=== PATIENT | male | born 1975 ===

== ENCOUNTER 2016-05-25 22:27 | Inpatient (IN) | payer MEDICAID ==
[2016-05-25 22:27] VITALS: BMI 26.8
--- NOTE | 2016-05-25 22:38 | ED PDOC ---
Psych Transfer Clearance - Clearance Statement Clearance Statement: Reviewed vital signs, lab results and transfer papers. Patient clinically stable for psychiatric admission.
[2016-05-25] MEDS ORDERED: Alum-Mag Hydrox-Simethicone Susp (30 mL) PO PRN (23:19)
[2016-05-25] MEDS ORDERED: Magnesium Hydroxide Susp 30 ml UD PO PRN (23:19)
[2016-05-25] MEDS ORDERED: DiphenhydrAMINE 50 mg/ml Inj IM PRN (23:19)
[2016-05-25] MEDS ORDERED: Bismuth Subsalicylate 262 mg/15 ml Sus (240 ml) PO PRN (23:23)
[2016-05-25] MEDS ORDERED: Albuterol HFA 90 mcg/actuation (8 g) INH PRN (23:38)
[2016-05-26 01:19] VITALS: O2SAT 97
[2016-05-26 08:03] LABS: T4 7.41 ug/dl (5.5-11.0)
[2016-05-26 08:16] LABS: THYROID STIMULATING HORMONE 1.53 mIU/ML (0.46-4.68)
[2016-05-26] MEDS: VENTOLIN INH PRN (13:45)
--- NOTE | 2016-05-26 19:46 | CP.PCM.CON ---
History of Present Illness - History of Present Illness History of Present Illness: Hospitalist Consult H&P (Patient was seen and examined at 6:35 PM 05/26/16 [id number]) Patient was admitted to in-patient Psychiatry for evaluation of hearing voices. Unfortunately patient is not a very good historian. He explains that when he feels sad, he starts to drink beer and he consumed 8 beers a few days ago (he can not be more specific than that). After drinking these beers he started to hear voices (again he could not be more specific at the time of my interview as to what these voices were telling him). He believes that the Risperdol is not working. Patient goes from one thought to the next: he talked about his drinking beer, then living with his grandmother, then watching movies, then back to the Risperdol not working for him. Upon ROS there is NO chest pain, NO palpitations, NO SOB/Coug/Wheezing, NO dysphagia/odynophagia, NO abdominal pain, NO n/v/d/c (states that he has diarrhea but when asked to clarify he states that the stools are soft), NO burning/pain with urination, NO lightheadedness/dizziness, NO headaches, NO paresthesias, NO edema The following obtained through prior records and from speaking with patient: PMHx: HTN, Gastritis, Anxiety, Bipolar Disorder, Schizophrenia, Asthma PSHx: Denies ALL: Haloperidol Medication: See list below Social Hx: NOT working, Lives with GrandMom, (+) Cigars about 14-15 a day, (+) Alcohol about 8 beers when he feels sad a few times a week, Denies Illicit Drugs Family Hx: Could not provide any Family Hx Exam: HEENT: NCA, PERRLA, EOMI, NO cervical lymphadenopathy, NO thyromegaly, NO pharyngeal erythema/exudate, Oral mucosa and Nasal turbinates are dry Cardio: NS1 and NS2, NO M/R/G Respiratory: Scattered end expiratory wheezes, NO signs of respiratory distress , Speaking in full sentences GI: BSx4, Soft, NT, Central Obesity (liver and spleen could not be adequately palpated) Ext: NO edema, Pulses are strong and equal, Capillary Refill is 2 seconds Neuro: CN II through XII are grossly intact Assessment and Plan: 1). Schizophrenia Treatment as per Psychiatry 2). Hx Asthma Duoneb Q6H PRN SOB/Wheezing ordered F/U Chest X Ray PA and Lateral F/U Labs 05/27/16 Review of Systems - Review of Systems Review of Systems: SEE HPI Past Patient History - Infectious Disease Hx of Infectious Diseases: None - Tetanus Immunizations Tetanus Immunization: Unknown - Past Medical History & Family History Pertinent Family History: SEE HPI - Past Social History Smoking Status: Former Smoker - CARDIAC Hx Hypertension: Yes - PULMONARY Hx Asthma: Yes - NEUROLOGICAL Hx Seizures: Yes (ETOH related) - HEENT Hx HEENT Problems: No - RENAL Hx Chronic Kidney Disease: No - ENDOCRINE/METABOLIC Hx Endocrine Disorders: No - HEMATOLOGICAL/ONCOLOGICAL Hx Cancer: No Hx Human Immunodeficiency Virus (HIV): No - INTEGUMENTARY Hx Dermatological Problems: No - MUSCULOSKELETAL/RHEUMATOLOGICAL Hx Musculoskeletal Disorders: No - GASTROINTESTINAL Hx Gastritis: Yes - GENITOURINARY/GYNECOLOGICAL Hx Genitourinary Disorders: No Hx Sexually Transmitted Disorders: No - PSYCHIATRIC Hx Schizophrenia: Yes Hx Substance Use: No - SURGICAL HISTORY Hx Surgeries: No - ANESTHESIA Hx Anesthesia: No Meds Allergies/Adverse Reactions: Allergies Allergy/AdvReac Type Severity Reaction Status Date / Time haloperidol [From Haldol] Allergy ANAPHYLAXIS Verified 05/25/16 22:30 haloperidol lactate Allergy ANAPHYLAXIS Verified 05/25/16 22:30 [From Haldol] - Medications Medications: Current Medications Acetaminophen (Tylenol 325mg Tab) 650 mg PO Q4 PRN PRN Reason: pain level 4-7 Al Hydrox/Mg Hydrox/Simethicone (Maalox Plus 30 Ml) 30 ml PO Q4 PRN PRN Reason: Dyspepsia Bismuth Subsalicylate (Pepto-Bismol) 524 mg PO Q4 PRN PRN Reason: for diarrhea Diphenhydramine HCl (Benadryl) 50 mg PO Q6 PRN PRN Reason: Extrapyramidal Symptoms Diphenhydramine HCl (Benadryl) 50 mg IM Q6 PRN PRN Reason: Extrapyramidal S/S Unable PO Diphenhydramine HCl (Benadryl) 50 mg PO HS PRN PRN Reason: Sleep Home Med (Patient's Own Medication) 2 unit INH Q4H PRN PRN Reason: Wheezing/sob Last Admin: 05/26/16 13:45 Dose: 2 unit Lorazepam (Ativan) 2 mg PO Q4 PRN PRN Reason: Anxiety/Agitation Lorazepam (Ativan) 2 mg IM Q4 PRN PRN Reason: Anxiety/Agitation,Unable PO Magnesium Hydroxide (Milk Of Magnesia) 30 ml PO HS PRN PRN Reason: Constipation Trazodone HCl (Desyrel) 100 mg PO HS PRN PRN Reason: for insomnia Last Admin: 05/26/16 00:10 Dose: 100 mg Results - Vital Signs Recent Vital Signs: Last Vital Signs Temp 96.3 F L 05/26/16 17:00 Pulse 78 05/26/16 17:00 Resp 18 05/26/16 17:00 BP 125/75 05/26/16 17:00 Pulse Ox 97 05/25/16 23:30 - Labs Labs: Laboratory Results - last 24 hr 05/26/16 07:05 Hemoglobin A1c 5.9 Triglycerides 61 Cholesterol 166 LDL Cholesterol Direct 86 HDL Cholesterol 49 Thyroxine (T4) 7.41 TSH 3rd Generation 1.53
--- NOTE | 2016-05-26 20:24 | PCM.PSYCH ---
Initial Psychiatric Evaluation - Initial Psychiatric Evaluation Type of Admission: Voluntary Chief Complaint (in patient's own words): came to emergency room because I was hearing voices and drinking Patient's Reaction to Hospitalization: verbally agreeable to remain History of Present Illness and Precipitating Events: reports has been drinking approx. 5-6 24 oz beers per day, reports drinks all day long, has been drinking for many years, does not remember when started nor if he was ever in rehab or detox for etoh. reports that began hearing voices at age 28, does not recall particular event. reports was seen by various psychiatrists and prescribed various medications. in past was admitted for " many months in [place]". Admits that when is discharged does not always follow up or continue to take medications, would stop, would drink and stop medications. In between would go to emergency room or be admitted and get medications. admits that last seen several weeks ago. reports in past was taking geodon of unknown dose was working for 10 years then stopped working. reportedly was started on risperdal of varying amounts but reports started having uncontrollable movement of tongue-dose was reportedly decreased but remained with movement of tongue. once risperdal was stopped movements of tongue resolved. Current Medications: Active Medications Generic Name Dose Route Start Last Admin Trade Name Freq PRN Reason Stop Dose Admin Acetaminophen 650 mg 05/25/16 23:19 Tylenol 325mg Tab PO Q4 PRN pain level 4-7 Al Hydrox/Mg Hydrox/Simethicone 30 ml 05/25/16 23:19 Maalox Plus 30 Ml PO Q4 PRN Dyspepsia Albuterol/Ipratropium 3 ml 05/26/16 19:47 Duoneb 3 Mg/0.5 Mg (3 Ml) Ud INH RQ6 PRN Shortness of Breath Aripiprazole 15 mg 05/26/16 22:00 Abilify PO HS DEYANIRA Benztropine Mesylate 2 mg 05/26/16 22:00 Cogentin PO HS DEYANIRA Bismuth Subsalicylate 524 mg 05/25/16 23:23 Pepto-Bismol PO Q4 PRN for diarrhea Diphenhydramine HCl 50 mg 05/25/16 23:19 Benadryl PO Q6 PRN Extrapyramidal Symptoms Diphenhydramine HCl 50 mg 05/25/16 23:19 Benadryl IM Q6 PRN Extrapyramidal S/S Unable PO Diphenhydramine HCl 50 mg 05/25/16 23:22 Benadryl PO HS PRN Sleep Home Med 2 unit 05/26/16 00:14 05/26/16 13:45 Patient's Own Medication INH 2 unit Q4H PRN Administration Wheezing/sob Lorazepam 2 mg 05/25/16 23:19 Ativan PO Q4 PRN Anxiety/Agitation Lorazepam 2 mg 05/25/16 23:19 Ativan IM Q4 PRN Anxiety/Agitation,Unable PO Magnesium Hydroxide 30 ml 05/25/16 23:19 Milk Of Magnesia PO HS PRN Constipation Trazodone HCl 100 mg 05/25/16 23:35 05/26/16 00:10 Desyrel PO 100 mg HS PRN Administration for insomnia Past Psychiatric History - Past Psychiatric History Previous Treatment History: Inpatient Prior Professional Help: inpatient, no follow with opd per hx Prior Psychiatric Treatment: [facility] both inpt and opd, terminal [facility] History of Abuse: defers History of ETOH/Drug Use: long standing history of etoh use does not recall if had DT's or withdrawal in past Pertinent Medical Hx (Current Medical&Sleep Prob, Allergies): Allergies Allergy/AdvReac Type Severity Reaction Status Date / Time haloperidol [From Haldol] Allergy ANAPHYLAXIS Verified 05/25/16 22:30 haloperidol lactate Allergy ANAPHYLAXIS Verified 05/25/16 22:30 [From Haldol] Benztropine [Cogentin] 1 mg PO BID #60 tab 05/10/16 risperiDONE [RisperDAL Tab] 2 mg PO BID #60 tab 05/10/16 traZODone [Desyrel] 100 mg PO HS PRN #30 tab 05/10/16 Spacer, Inhalation [Aerochamber] 1 inh IH QID #1 dev 05/21/16 Albuterol HFA [Ventolin HFA 90 mcg/actuation (8 g)] 2 puff IH Q4 05/26/16 Review of Systems - Psychiatric Psychiatric: Abnormal Sleep Pattern, Auditory Hallucinations, Hallucinations, Irritability, Mood Swings Additional comments: auditory Mental Status Examination - Personal Presentation Personal Presentation: Looks older than stated age - Affect Affect: Constricted - Motor Activity Motor Activity: Calm - Reliability in Providing Information Reliability in Providing Information: Poor, due to alteration in thoughts - Speech Speech: Disorganized - Mood Mood: Depressed - Formal Thought Process Formal Thought Process: Hallucinations, Paranoia - Cognitive Functions Orientation: Person, Place Sensorium: Alert Attention/Concentration: Easily distracted Judgement: Imparied, as evidence by: Poor judgement - Risk Risk: Suicidal - Strength & Assets Inventory Strength & Assets Inventory: Cooperative Additional comments: voluntary admission - Limitations Limitations: Other Additional comments: non adherence non follow up DSM 5 DX - DSM 5 DSM 5 Diagnosis: Schizophrenia Paranoid Type by History Substance Abuse: ETOH Current Substance Induced Mood/Psychosis - Recommended/Plan of Treatment Treatment Recommendations and Plan of Treatment: admission per attending MD Vital signs and Clinical Observation per protocol and per clinical status Hospitalist consult Pt defers use of risperidone 2nd to reported eps, reviewed ability with pt and is verbally agreeable: will start 10mg po hs with benztropine 2mg po hs trazodone 100mg po hs for insomnia get up slowly falls precautions consider abilify maintenna long acting given hx of non adherence once affects of abilify are known discharge planning in progress Projected ELOS: 5-7 days Prognosis: guarded Discharge Plan and Discharge Criteria: resolve of audio hallucinations minimal to no side effects from medication safe - Smoking Cessation Smoking Cessation Initiated: No Reason for not providing: pt defers
[2016-05-27 07:56] LABS: BASO % 0.5 % (0.0-2.0); EOS # 0.6 K/uL (0.0-0.7); EOS % 9.2 % (0.0-4.0); HEMATOCRIT 43.6 % (35.0-51.0); LYMPH # 1.4 K/uL (1.0-4.3); LYMPH % 23.1 % (20.0-40.0); MEAN CELL VOLUME 85.5 fl (80.0-94.0); MEAN CORPUSCULAR HEMOGLOBIN 27.6 pg (27.0-31.0); MEAN CORPUSCULAR HGB CONC 32.2 g/dL (33.0-37.0); MEAN PLATELET VOLUME 8.6 fl (7.2-11.7); MONO # 0.7 K/uL (0.0-0.8); MONO % 11.8 % (0.0-10.0); NEUT # 3.3 K/uL (1.8-7.0); NEUT % 55.4 % (50.0-75.0); NRBC % 0.1 % (0.0-0.0); RED CELL DISTRIBUTION WIDTH 15.1 % (11.5-14.5)
[2016-05-27 08:28] LABS: ALB/GLOB RATIO 1.1 (1.0-2.1); ALKALINE PHOSPHATASE 62 U/L (38-126); ALT/SGPT 59 U/L (21-72); AST/SGOT 32 U/L (17-59); BILIRUBIN,TOTAL 0.5 mg/dl (0.2-1.3); BLOOD UREA NITROGEN 12 mg/dl (9-20); CALCIUM 9.1 mg/dL (8.4-10.2); CARBON DIOXIDE 26 mmol/L (22-30); CHLORIDE 105 mmol/L (98-107); GFR AFRICAN-AMERICAN > 60; GLUCOSE,RANDOM 101 mg/dL (75-110); POTASSIUM 4.1 MMOL/L (3.6-5.0); SODIUM 143 mmol/l (132-148); TOTAL PROTEIN 7.6 G/DL (6.3-8.2)
[2016-05-27] MEDS: VENTOLIN INH PRN ×2 (10:13→17:49)
--- NOTE | 2016-05-27 18:48 | PCM.PYCHPN ---
Psychiatric Progress Note - Psychiatric Progress Note Patient seen today, length of contact: chart reviewed, case discussed with team Patient Chief Complaint: was hearing voices voices are somewhat less, staff report pt has been adherent Problems Identified/Issues Discussed: alteration in mood, alteration in thought process Medical Problems: per chart Diagnostic Results: per psychiatry per medicine per social work per recreational therapy DSM 5 Symptoms Update: changes in thought process Medication Change: No Medical Record Reviewed: Yes Mental Status Examination - Cognitive Function Orientation: Person, Place Attention: WNL Concentration: WNL Association: WNL Fund of Knowledge: [facility] Decription of patient's judgement and insights: impaired - Mood Mood: Depressed - Affect Affect: Constricted - Speech Speech: Soft - Formal Thought Process Formal Thought Process: Hallucinations, Paranoia - Suicidal Ideation Suicidal Ideation: No - Homicidal Ideation Homicidal Ideation: No Goal/Treatment Plan - Goal/Treatment Plan Need for Continued Stay: Remain at risks for inpatient hospitalization, Discharge may exacerbated symptoms Progress Toward Problem(s) and Goals/Treatment Plan: inpt/milieu Vital signs and Clinical Observation per protocol and per clinical status trazodone 100mg po hs for insomnia get up slowly falls precautions consider abilify maintenna long acting given hx of non adherence once affects of abilify are known discharge planning in progress Estimated Date of D/C: 06/03/16 - Smoking Cessation Smoking Cessation Initiated: No Reason for not providing: defers
[2016-05-28] MEDS: VENTOLIN INH PRN ×2 (10:08→16:30)
[2016-05-28] MEDS: Albuterol-Ipratrop 3 mg / 0.5 (3 ml) UD INH PRN (16:28)
--- NOTE | 2016-05-28 20:55 | PCM.PYCHPN ---
Psychiatric Progress Note - Psychiatric Progress Note Patient seen today, length of contact: chart reviewed, case discussed with team Patient Chief Complaint: is hearing voices much less almost gone , deneis side effects from medications, pt is reportedly adherent medication, reportedly pt is somewhat more out of room Problems Identified/Issues Discussed: alteration in mood, alteration in thought process Medical Problems: per chart Diagnostic Results: per psychiatry per medicine per social work per recreational therapy DSM 5 Symptoms Update: changes in mood and thought process Medication Change: No Medical Record Reviewed: Yes Mental Status Examination - Cognitive Function Orientation: Person, Place Attention: WNL Concentration: WNL Association: [facility] Fund of Knowledge: [facility] Decription of patient's judgement and insights: impaired - Mood Mood: Depressed - Affect Affect: Constricted - Speech Speech: Soft - Formal Thought Process Formal Thought Process: Hallucinations, Paranoia - Suicidal Ideation Suicidal Ideation: No - Homicidal Ideation Homicidal Ideation: No Goal/Treatment Plan - Goal/Treatment Plan Need for Continued Stay: Remain at risks for inpatient hospitalization, Discharge may exacerbated symptoms Progress Toward Problem(s) and Goals/Treatment Plan: inpt/milieu Vital signs and Clinical Observation per protocol and per clinical status trazodone 100mg po hs for insomnia get up slowly falls precautions consider abilify maintenna long acting given hx of non adherence once affects of abilify are known discharge planning in progress Estimated Date of D/C: 06/03/16 - Smoking Cessation Smoking Cessation Initiated: No Reason for not providing: pt deferred
[2016-05-29] MEDS: VENTOLIN INH PRN (09:28)
--- NOTE | 2016-05-29 14:00 | PCM.PYCHPN ---
Psychiatric Progress Note - Psychiatric Progress Note Patient seen today, length of contact: Patient evaluated, chart reviewed, case discussed with team Patient Chief Complaint: "I don't want to change the medications. When am I going home?" Problems Identified/Issues Discussed: Patient reports that the voices are less. No current ideation to harm himself or others. He would like to leave the hospital soon and the bid writer discussed the possibility of him being discharged on Tuesday if he continues to improve clinically. He does not want to increase the Abilify at this time and denies adverse effects to the medication. No other acute complaints. Denies feelings depressed or anxious. Medication Change: No Medical Record Reviewed: Yes Mental Status Examination - Cognitive Function Orientation: Person, Place, Situation, Time Memory: Other (Intact, but with poverty of speech/thought) Attention: WNL Concentration: WNL Association: WNL Fund of Knowledge: WN - Mood Mood: Depressed - Affect Affect: Constricted - Speech Speech: Soft - Formal Thought Process Formal Thought Process: Hallucinations, Other (Poverty of speech/thoughts) Psychotic Thoughts and Behaviors: +Intermittent AH, but patient reports they are less and that he is not disturbed by them. No CAH to harm himself - Suicidal Ideation Suicidal Ideation: No - Homicidal Ideation Homicidal Ideation: No Goal/Treatment Plan - Goal/Treatment Plan Need for Continued Stay: Remain at risks for inpatient hospitalization, Discharge may exacerbated symptoms Progress Toward Problem(s) and Goals/Treatment Plan: 40 yo male with schizophrenia and alcohol abuse, presented acutely decompensated in the setting of alcohol abuse/intoxication. -Continue Abilify 15 mg PO Daily, Benztropine 2 mg PO HS, Trazodone 100 mg PO HS -No current signs/symptoms of ETOH withdrawal, will continue to monitor -Supportive therapy provided, patient counseled on the importance of ETOH cessation -Individual, group and milieu tx Estimated Date of D/C: 05/31/16 - Smoking Cessation Smoking Cessation Initiated: No Reason for not providing: Not indicated
[2016-05-30] MEDS: VENTOLIN INH PRN (09:22)
--- NOTE | 2016-05-30 09:33 | PCM.PYCHPN ---
Psychiatric Progress Note - Psychiatric Progress Note Patient seen today, length of contact: Patient evaluated, chart reviewed, case discussed with team Patient Chief Complaint: "I'm okay." Problems Identified/Issues Discussed: No significant events. Patient reports that he no longer has AH. He is goal oriented and looking forward to discharge. He does not want to increase the Abilify at this time and denies adverse effects to the medication. No other acute complaints. Denies feelings depressed or anxious. Medication Change: No Medical Record Reviewed: Yes Mental Status Examination - Cognitive Function Orientation: Person, Place, Situation, Time Memory: Other (Intact, but with poverty of speech/thought) Attention: WNL Concentration: WNL Association: WNL Fund of Knowledge: [facility] Decription of patient's judgement and insights: Fair I/J - Mood Mood: Neutral - Affect Affect: Blunted - Speech Speech: Soft - Formal Thought Process Formal Thought Process: Other (Poverty of speech/thoughts) Psychotic Thoughts and Behaviors: Denies AH/VH/paranoia/delusions - Suicidal Ideation Suicidal Ideation: No - Homicidal Ideation Homicidal Ideation: No Goal/Treatment Plan - Goal/Treatment Plan Need for Continued Stay: Remain at risks for inpatient hospitalization, Discharge may exacerbated symptoms Progress Toward Problem(s) and Goals/Treatment Plan: 40 yo male with schizophrenia and alcohol abuse, presented acutely decompensated in the setting of alcohol abuse/intoxication, now improving clinically. -Continue Abilify 15 mg PO Daily, Benztropine 2 mg PO HS, Trazodone 100 mg PO HS -No current signs/symptoms of ETOH withdrawal, will continue to monitor -Supportive therapy provided, patient counseled on the importance of ETOH cessation -Individual, group and milieu tx -Discharge tomorrow if patient continue to improve clinically Estimated Date of D/C: 05/31/16
[2016-05-31] MEDS: Albuterol-Ipratrop 3 mg / 0.5 (3 ml) UD INH PRN (09:50)
[2016-05-31] MEDS: VENTOLIN INH PRN (09:51)
[2016-05-31 09:57] VITALS: BP 119/78; PULSE 78; RESP 16; TEMP 96.6
--- NOTE | 2016-05-31 10:01 | PCM.PYCHDC ---
Mental Status Examination - Mental Status Examination Orientation: Person, Place, Situation, Time Memory: Intact Mood: Neutral Affect: Constricted Speech: Appropriate Attention: WNL Concentration: WNL Association: WNL Fund of Knowledge: WNL Formal Thought Process: No Impairment Description of patient's judgement and insight: Fair I/J Psychotic Thoughts and Behaviors: Denies AH/VH/paranoia/delusions Suicidal Ideation: No Current Homicidal Ideation?: No Discharge Summary - Discharge Note Reason for Hospitalization: As per initial admit note: "reports has been drinking approx. 5-6 24 oz beers per day, reports drinks all day long, has been drinking for many years, does not remember when started nor if he was ever in rehab or detox for etoh. reports that began hearing voices at age 28, does not recall particular event. reports was seen by various psychiatrists and prescribed various medications. in past was admitted for "many months in [place]". Admits that when is discharged does not always follow up or continue to take medications, would stop , would drink and stop medications. In between would go to emergency room or be admitted and get medications. admits that last seen several weeks ago. reports in past was taking geodon of unknown dose was working for 10 years then stopped working. reportedly was started on risperdal of varying amounts but reports started having uncontrollable movement of tongue-dose was reportedly decreased but remained with movement of tongue. once risperdal was stopped movements of tongue resolved." Consultations:: List each consultation separately and include: 1. Reason for request. 2. Findings. 3. Follow-up Consultations: Medicine consult Summary of Hospital Course include:: 1. Description of specific treatment plan utilized for patients during their course of treatmen. 2. Summarize the time- course for resolution of acute symptoms and/or regressed behaviors. 3. Describe issues identified and worked on during hospitalization. 4. Describe medication utilized. 5. Describe medical problems identified and treated. 6. Reassessment of suicide risk Summary of Hospital Course: Patient admitted to the hospital and stabilized on Abilify 15 mg PO Daily, Trazodone 100 mg PO HS and Cogentin 2 mg PO HS. He no longer reports auditory hallucinations. Patient participated in individual and group therapy. Supportive and motivational therapy were provided. Patient was counseled on the importance of ETOH cessation. - Final Diagnosis (DSM 5) Condition upon Discharge: STABLE DSM 5: Schizophrenia, alcohol abuse Disposition: HOME/ ROUTINE Follow-up Treatment Plan: 40 yo male with schizophrenia and alcohol abuse, presented acutely decompensated in the setting of alcohol abuse/intoxication, now improved clinically. -Continue Abilify 15 mg PO Daily, Benztropine 2 mg PO HS, Trazodone 100 mg PO HS -Supportive therapy provided, patient counseled on the importance of ETOH cessation -Discharge today with outpatient follow-up Prescriptions/Medication Reconciliation: ARIPiprazole [Abilify] 15 mg PO DAILY #30 tab Benztropine [Cogentin] 2 mg PO HS #30 tab traZODone [Desyrel] 100 mg PO HS PRN #30 tab PRN Reason: for insomnia - Smoking Cessation Smoking Cessation Medication prescribed: No Reason for not providing: Not indicated - Antipsychotic Medications Pt discharged on 2 or more routine antipsychotic medications: No
== END 2016-05-31 14:00 | disposition home or self-care (01) | DRG 430 ==
LOC: H.ER 22:27 → H.ERHOLD 22:37 → H.PSYCH 22:51
PROVIDERS: ADMIT Psychiatry & Neurology Psychiatry; ATTEND Psychiatry & Neurology Psychiatry
PROC: GZHZZZZ Group Psychotherapy (ICD-10-PCS; principal; 2016-05-25)
PROC: GZ56ZZZ Individual Psychotherapy, Supportive (ICD-10-PCS; 2016-05-25)
DX: F20.0 Paranoid schizophrenia (principal); I10 Essential (primary) hypertension; J45.909 Unspecified asthma, uncomplicated; K29.70 Gastritis, unspecified, without bleeding; F10.10 Alcohol abuse, uncomplicated; Y90.9 Presence of alcohol in blood, level not specified; G47.00 Insomnia, unspecified

== ENCOUNTER 2016-07-09 13:10 | Inpatient (IN) | payer MEDICAID ==
[2016-07-09 13:10] VITALS: BMI 26.8
[2016-07-09 14:05] LABS: BASO % 0.2 % (0.0-2.0); EOS % 0.2 % (0.0-4.0); HEMATOCRIT 41.9 % (35.0-51.0); LYMPH # 1.1 K/uL (1.0-4.3); LYMPH % 6.9 % (20.0-40.0); MEAN CELL VOLUME 84.6 fl (80.0-94.0); MEAN CORPUSCULAR HEMOGLOBIN 27.6 pg (27.0-31.0); MEAN CORPUSCULAR HGB CONC 32.6 g/dL (33.0-37.0); MEAN PLATELET VOLUME 8.4 fl (7.2-11.7); MONO # 1.8 K/uL (0.0-0.8); NEUT # 13.1 K/uL (1.8-7.0); NEUT % 81.7 % (50.0-75.0); NRBC % 0.1 % (0.0-0.0); PLATELET COUNT 329 K/uL (130-400); RED CELL DISTRIBUTION WIDTH 15.3 % (11.5-14.5)
[2016-07-09 14:19] LABS: ALB/GLOB RATIO 1.3 (1.0-2.1); ALCOHOL SERUM < 10 mg/dl (0-10); ALKALINE PHOSPHATASE 129 U/L (38-126); ALT/SGPT 141 U/L (21-72); AST/SGOT 42 U/L (17-59); BILIRUBIN,TOTAL 0.6 mg/dl (0.2-1.3); BLOOD UREA NITROGEN 14 mg/dl (9-20); CALCIUM 9.8 mg/dL (8.4-10.2); CARBON DIOXIDE 24 mmol/L (22-30); CHLORIDE 98 mmol/L (98-107); GFR AFRICAN-AMERICAN > 60; GLUCOSE,RANDOM 104 mg/dL (75-110); POTASSIUM 4.2 MMOL/L (3.6-5.0); SODIUM 137 mmol/l (132-148); TOTAL PROTEIN 8.9 G/DL (6.3-8.2)
--- NOTE | 2016-07-09 14:53 | ED PDOC ---
HPI: Psych/Substance Abuse Time Seen by Provider: 07/09/16 13:16 Chief Complaint (Nursing): Psychiatric Evaluation Chief Complaint (Provider): Hearing Vocies req. Psychiatric Evaluation History Per: Patient History/Exam Limitations: no limitations Current Symptoms Are (Timing): Constant Modifying Factor(s): Alcohol, Other (OTC meds) Severity: Moderate Associated Symptoms: denies: Suicidal Thoughts Additional History Per: Prior Records Additional Complaint(s): Madi Pereira is a 41 year old male, with a past medical history of schizophrenia, bipolar disorder, depression, and anxiety, who presents to the emergency department via EMS with complaints of hearing voices and is currently requesting a psychiatric evaluation. Patient took 18 capsules of Geodon or Risperdal (is unsure as to which medication), along with 5 cans of beer, which he was seen this morning at [facility] for, and admitted for a psychiatric evaluation. Patient currently states that he wants to go to [facility]. Denies suicidal thoughts and states that he took the medications because he thought that they would help him. PMD: none specified Past Medical History Vital Signs: Last Vital Signs Temp 98.4 F 07/09/16 13:12 Pulse 108 H 07/09/16 13:12 Resp 19 07/09/16 13:12 BP 128/80 07/09/16 13:12 Pulse Ox 97 07/09/16 13:12 - Medical History PMH: Anxiety, Asthma, Bipolar Disorder, Depression, Gastritis, HTN, Schizophrenia Denies: Diabetes, Hepatitis, HIV, Chronic Kidney Disease, Seizures, Sexually Transmitted Disease - Surgical History Surgical History: No Surg Hx - Family History Family History: States: No Known Family Hx - Living Arrangements Living Arrangements: With Family (with grandmother) - Social History Current smoker - smoking cessation education provided: No Ex-Smoker (has not smoked in the last 12 months): Yes Alcohol: Occasional Drugs: Denies - Immunization History Hx Tetanus Toxoid Vaccination: No Hx Influenza Vaccination: No Hx Pneumococcal Vaccination: No - Home Medications Home Medications: Ambulatory Orders Medication Instructions Recorded Benztropine [Cogentin] 1 mg PO BID #1 tab 07/08/16 Ziprasidone [Geodon Cap] 60 mg PO HS #1 cap 07/08/16 Ziprasidone [Geodon] 80 mg PO BID #1 cap 07/08/16 fluPHENAZine [Prolixin] 10 mg PO BID #1 tab 07/08/16 hydrOXYzine HCl [Atarax] 50 mg PO TID #1 tab 07/08/16 traZODone [Desyrel] 100 mg PO HS PRN #1 tab 07/08/16 Albuterol HFA [Ventolin HFA 90 1 puff IH Q4H PRN 07/09/16 mcg/actuation (8 g)] - Allergies Allergies/Adverse Reactions: Allergies Allergy/AdvReac Type Severity Reaction Status Date / Time haloperidol [From Haldol] Allergy ANAPHYLAXIS Verified 06/13/16 20:47 haloperidol lactate Allergy ANAPHYLAXIS Verified 06/13/16 20:47 [From Haldol] Review of Systems Review Of Systems: ROS cannot be obtained secondary to pt's inabilty to answer questions. (ROS unobtainable due to patient's psychiatric condition) Psych: Negative for: Suicidal ideation Physical Exam - Reviewed Nursing Documentation Reviewed: Yes Vital Signs Reviewed: Yes - Physical Exam Appears: Positive for: No Acute Distress. Negative for: Well (disheveled appearing) Head Exam: Positive for: ATRAUMATIC, NORMOCEPHALIC Skin: Positive for: Normal Color, Warm, Dry Eye Exam: Positive for: EOMI, Normal appearance, PERRL Cardiovascular/Chest: Positive for: Tachycardia (mild). Negative for: Regular Rate, Rhythm (regular rhythm) Respiratory: Positive for: Normal Breath Sounds. Negative for: Respiratory Distress Gastrointestinal/Abdominal: Positive for: Normal Exam, Soft. Negative for: Tenderness Back: Positive for: Normal Inspection. Negative for: L CVA Tenderness, R CVA Tenderness Neurologic/Psych: Positive for: Alert, Oriented, Other (mumbled speech, cooperatove w/ poor insight) - Laboratory Results Result Diagrams: 07/09/16 19:00 07/09/16 13:57 - ECG ECG Rhythm: Positive for: Normal QRS, Sinus Rhythm Interpretation Of Abn EKG: QTC interval at 480 Rate: 96 O2 Sat by Pulse Oximetry: 97 (RA) Pulse Ox Interpretation: Normal Medical Decision Making Medical Decision Makin:16 Initial Impression: Possible overdose with known setting of prolonged mental illness. Initial Plan: * Chest X-Ray * Electrocardiogram (x2) * Alcohol Serum * Complete Blood Count * Comprehensive Metabolic Panel * Troponin I * Acetaminophen * Salicylate * Urine Drug Screen * Urinalysis * ED Observation * Reevaluation 13:40 EKG read a rate of 96 with a Normal Sinus Rhythm, Normal QRS, and a QTC interval at 480. 15:06 Patient will be placed within ED Observation secondary to need for psychiatric stabilization. Pending cardiac and neurological monitoring for presentation of Toxidrome. See Observation note for further updates. 16:45 Patient cleared by poison control and is awaiting a crisis evaluation for disposition. Repeat EKG shows a a Normal Sinus Rhythm at a rate of 93 with a QTC interval at 457. Scribe Attestation: Documented by Matt Mott, acting as a scribe for Salinas Bender III, MD. Provider Scribe Attestation: All medical record entries made by the Scribe were at my direction and personally dictated by me. I have reviewed the chart and agree that the record accurately reflects my personal performance of the history, physical exam, medical decision making, and the department course for this patient. I have also personally directed, reviewed, and agree with the discharge instructions and disposition. ED OBSERVATION Discharge: Yes Date of observation admission: 07/09/16 Time of observation admission: 15:06 - Observation admission statement Patient is being placed in observation because:: Patient will be placed within ED Observation secondary to need for psychiatric stabilization. - Goals of Observation Goals of observation are:: Pending cardiac and neurological monitoring for presentation of Toxidrome. Disposition - Clinical Impression Clinical Impression: Schizophrenia, Overdose - Patient ED Disposition Is Patient to be Admitted: Transfer of Care Counseled Patient/Family Regarding: Studies Performed, Diagnosis - Disposition Disposition Time: 19:00 Condition: FAIR Patient Signed Over To: Louis Dickson Handoff Comments: pending crisis eval
[2016-07-09 15:31] LABS: NEUTROPHIL 89 % (42-75); TOTAL CELLS COUNTED 100
[2016-07-09 15:33] LABS: LARGE PLATELETS PRESENT
[2016-07-09 16:37] LABS: RBC URINE 3 /hpf (0-3); URINE BILIRUBIN NEGATIVE (NEGATIVE); URINE BLOOD NEGATIVE (NEGATIVE); URINE COLOR YELLOW (YELLOW); URINE GLUCOSE (UA) NEG (Normal); URINE KETONE TRACE mg/dL (NEGATIVE); URINE LEUKOCYTE ESTERASE NEG Leu/uL (Negative); URINE PROTEIN NEGATIVE (NEGATIVE); URINE UROBILINOGEN 0.2-1.0 mg/dL (0.2-1.0); WBC URINE 1 /hpf (0-5)
--- NOTE | 2016-07-09 18:37 | CARD ---
APPROVED REPORT EKG Measurement Heart [id number] <Conclusion> Normal sinus rhythm Prolonged QT Abnormal ECG
[2016-07-09 19:16] LABS: HEMATOCRIT 40.8 % (35.0-51.0); MEAN CELL VOLUME 84.1 fl (80.0-94.0); MEAN CORPUSCULAR HEMOGLOBIN 27.5 pg (27.0-31.0); MEAN CORPUSCULAR HGB CONC 32.7 g/dL (33.0-37.0); RED CELL DISTRIBUTION WIDTH 15.5 % (11.5-14.5); WHITE BLOOD COUNT 12.2 K/uL (4.8-10.8)
--- NOTE | 2016-07-09 22:08 | ED PDOC ---
- Laboratory Results Result Diagrams: 07/09/16 19:00 07/09/16 13:57 - ECG O2 Sat by Pulse Oximetry: 99 (RA) Pulse Ox Interpretation: Normal Medical Decision Making Medical Decision Makin:00 Patient transferred over to provider from Dr. Bender. Pending crisis evaluation. 20:26 Patient was evaluated by crisis and is currently medically stable for a psychiatric admission. Clinical Impression: Schizophrenia Scribe Attestation: Documented by Matt Mott, acting as a scribe for Louis Dickson MD. Provider Scribe Attestation: All medical record entries made by the Scribe were at my direction and personally dictated by me. I have reviewed the chart and agree that the record accurately reflects my personal performance of the history, physical exam, medical decision making, and the department course for this patient. I have also personally directed, reviewed, and agree with the discharge instructions and disposition. Disposition - Clinical Impression Clinical Impression: Schizophrenia - POA Present On Arrival: None - Disposition Disposition: Admitted as In-Patient Disposition Time: 20:26 Condition: FAIR
[2016-07-09] MEDS ORDERED: Magnesium Hydroxide Susp 30 ml UD PO PRN (23:08)
[2016-07-09] MEDS ORDERED: DiphenhydrAMINE 50 mg/ml Inj IM PRN (23:08)
[2016-07-09] MEDS ORDERED: Alum-Mag Hydrox-Simethicone Susp (30 mL) PO PRN (23:08)
[2016-07-10] MEDS: Albuterol HFA 90 mcg/actuation (8 g) INH PRN ×2 (00:08→06:25)
--- NOTE | 2016-07-10 17:38 | PCM.PSYCH ---
Initial Psychiatric Evaluation - Initial Psychiatric Evaluation Chief Complaint (in patient's own words): was stopped meds and started drinking Patient's Reaction to Hospitalization: reports after most recent discharge stopped rx and began drinking , does not follow up once discharged History of Present Illness and Precipitating Events: multiple admission, non follow up, etoh Current Medications: Active Medications Generic Name Dose Route Start Last Admin Trade Name Freq PRN Reason Stop Dose Admin Acetaminophen 650 mg 07/09/16 23:08 Tylenol 325mg Tab PO Q4 PRN pain 4-7 Al Hydrox/Mg Hydrox/Simethicone 30 ml 07/09/16 23:08 Maalox Plus 30 Ml PO Q4 PRN Dyspepsia Albuterol 2 puff 07/09/16 23:14 07/10/16 06:25 Ventolin Hfa 90 Mcg/Actuation (8 G) INH 2 puff QID PRN Administration Shortness of Breath Diphenhydramine HCl 50 mg 07/09/16 23:08 Benadryl IM Q6 PRN Extrapyramidal S/S Unable PO Diphenhydramine HCl 50 mg 07/09/16 23:08 Benadryl PO Q6 PRN Extrapyramidal Symptoms Diphenhydramine HCl 50 mg 07/09/16 23:08 Benadryl PO HS PRN Sleep Lorazepam 2 mg 07/09/16 23:08 Ativan IM Q4 PRN Anxiety/Agitation,Unable PO Lorazepam 2 mg 07/09/16 23:08 Ativan PO Q4 PRN Anxiety/Agitation Magnesium Hydroxide 30 ml 07/09/16 23:08 Milk Of Magnesia PO HS PRN Constipation Past Psychiatric History - Past Psychiatric History Prior Professional Help: both inpt and opd History of ETOH/Drug Use: etoh History of Family Illness: defers Pertinent Medical Hx (Current Medical&Sleep Prob, Allergies): Allergies Allergy/AdvReac Type Severity Reaction Status Date / Time haloperidol [From Haldol] Allergy ANAPHYLAXIS Verified 06/13/16 20:47 haloperidol lactate Allergy ANAPHYLAXIS Verified 06/13/16 20:47 [From Haldol] Benztropine [Cogentin] 1 mg PO BID #1 tab 07/08/16 Ziprasidone [Geodon Cap] 60 mg PO HS #1 cap 07/08/16 Ziprasidone [Geodon] 80 mg PO BID #1 cap 07/08/16 fluPHENAZine [Prolixin] 10 mg PO BID #1 tab 07/08/16 hydrOXYzine HCl [Atarax] 50 mg PO TID #1 tab 07/08/16 traZODone [Desyrel] 100 mg PO HS PRN #1 tab 07/08/16 Albuterol HFA [Ventolin HFA 90 mcg/actuation (8 g)] 1 puff IH Q4H PRN 07/09/16 Review of Systems - Psychiatric Psychiatric: Abnormal Sleep Pattern, Anhedonia, Anxiety, Auditory Hallucinations , Change in Appetite, Depression, Paranoia Mental Status Examination - Affect Affect: Constricted - Motor Activity Motor Activity: Psychomotor Retardation - Reliability in Providing Information Reliability in Providing Information: Poor, due to alteration in thoughts - Speech Speech: Disorganized - Mood Mood: Depressed - Formal Thought Process Formal Thought Process: Hallucinations, Delusions, Paranoia - Hallucinations/Delusions Additional comments: auditory - Obsessions/Compulsions Obsessions: No Compulsions: No - Cognitive Functions Orientation: Person, Place, Situation, Time Sensorium: Alert Attention/Concentration: Attentive Judgement: Imparied, as evidence by: Poor judgement Memory: Recent intact, as evidence by: Ability to recall events of the day - Risk Risk: Suicidal, Diminished functioning - Strength & Assets Inventory Strength & Assets Inventory: Cooperative DSM 5 DX - DSM 5 DSM 5 Diagnosis: schizophrenia paranoid type non adherence - Recommended/Plan of Treatment Treatment Recommendations and Plan of Treatment: admission per attending vital signs and clinical observation per protocol and per status geodon 40mg po bid cogentin 1md po bid hospitalist consult discharge planning in progress Projected ELOS: 5-7 days Prognosis: guarded Discharge Plan and Discharge Criteria: safety - Smoking Cessation Smoking Cessation Initiated: No Reason for not providing: defers
[2016-07-11] MEDS: Albuterol HFA 90 mcg/actuation (8 g) INH PRN ×2 (08:59→16:20)
--- NOTE | 2016-07-11 10:01 | CP.PCM.CON ---
History of Present Illness - History of Present Illness History of Present Illness: Reason for Consult: Per hospital protocol HPI: 41 year old male no past medical history with some possible developmental delay , admitted to psych because he states he stopped taking his medications and began drinking. ROS: as per HPI, all other systems reviewed and negative by me PMH: denies PSH: denies Family History: denies Social History: denies Home Medications: per reconciliation Allergies: Haldol Vitals reviewed Constitutional- cooperative, awake, alert. Head- NCAT, PERRL Eye- PERRL, normal accommodation ENT- normal exam, MMM. Neck- normal inspection, supple, no JVD Respiratory- decreased BS, no wheezes rales rhonchi Cardiovascular- RRR, +S1, +S2 no MRG GI/Abdominal- normal bowel sounds, soft Extremities Exam- normal capillary refill, normal inspection Neurological Exam- alert, oriented Labs: 07/09/16 19:00 07/09/16 13:57 Assessment and Plan: 41 year old male no past medical history with some possible developmental delay , admitted to psych because he states he stopped taking his medications and began drinking. Psychiatric Issue per psychiatric team Past Patient History - Infectious Disease Hx of Infectious Diseases: None - Tetanus Immunizations Tetanus Immunization: Unknown - Past Social History Alcohol: Occasional Drugs: Denies - CARDIAC Hx Cardiac Disorders: No Hx Hypertension: Yes - PULMONARY Hx Tuberculosis: No - NEUROLOGICAL HX Cerebrovascular Accident: No Hx Seizures: No - HEENT Hx HEENT Problems: No - RENAL Hx Chronic Kidney Disease: No - ENDOCRINE/METABOLIC Hx Endocrine Disorders: No - HEMATOLOGICAL/ONCOLOGICAL Hx Cancer: No Hx Human Immunodeficiency Virus (HIV): No - INTEGUMENTARY Hx Dermatological Problems: No - MUSCULOSKELETAL/RHEUMATOLOGICAL Hx Musculoskeletal Disorders: No - GASTROINTESTINAL Hx Gastritis: Yes - GENITOURINARY/GYNECOLOGICAL Hx Sexually Transmitted Disorders: No - PSYCHIATRIC Hx Anxiety: Yes Hx Bipolar Disorder: Yes Hx Depression: Yes Hx Schizophrenia: Yes Hx Substance Use: No (denies) - SURGICAL HISTORY Hx Surgeries: No - ANESTHESIA Hx Anesthesia: No Hx Anesthesia Reactions: No Hx Malignant Hyperthermia: No Meds Allergies/Adverse Reactions: Allergies Allergy/AdvReac Type Severity Reaction Status Date / Time haloperidol [From Haldol] Allergy ANAPHYLAXIS Verified 06/13/16 20:47 haloperidol lactate Allergy ANAPHYLAXIS Verified 06/13/16 20:47 [From Haldol] - Medications Medications: Current Medications Acetaminophen (Tylenol 325mg Tab) 650 mg PO Q4 PRN PRN Reason: pain 4-7 Al Hydrox/Mg Hydrox/Simethicone (Maalox Plus 30 Ml) 30 ml PO Q4 PRN PRN Reason: Dyspepsia Albuterol (Ventolin Hfa 90 Mcg/Actuation (8 G)) 2 puff INH QID PRN PRN Reason: Shortness of Breath Last Admin: 07/11/16 08:59 Dose: 2 puff Diphenhydramine HCl (Benadryl) 50 mg IM Q6 PRN PRN Reason: Extrapyramidal S/S Unable PO Diphenhydramine HCl (Benadryl) 50 mg PO Q6 PRN PRN Reason: Extrapyramidal Symptoms Diphenhydramine HCl (Benadryl) 50 mg PO HS PRN PRN Reason: Sleep Lorazepam (Ativan) 2 mg IM Q4 PRN PRN Reason: Anxiety/Agitation,Unable PO Lorazepam (Ativan) 2 mg PO Q4 PRN PRN Reason: Anxiety/Agitation Last Admin: 07/10/16 21:43 Dose: 2 mg Magnesium Hydroxide (Milk Of Magnesia) 30 ml PO HS PRN PRN Reason: Constipation Results - Vital Signs Recent Vital Signs: Last Vital Signs Temp 96.8 F L 07/11/16 08:55 Pulse 94 H 07/11/16 08:55 Resp 20 07/11/16 08:55 BP 118/89 07/11/16 08:55 Pulse Ox 99 07/09/16 22:09 - Labs Result Diagrams: 07/09/16 19:00 07/09/16 13:57
--- NOTE | 2016-07-11 18:48 | PCM.PYCHPN ---
Psychiatric Progress Note - Psychiatric Progress Note Patient seen today, length of contact: chart reviewed, case discussed with team , 35min Patient Chief Complaint: was stopped meds and started drinking, talks of going to [facility] for prison care, reports previously taking seroquel at night and abilify in morning, some help when taken regularly. defers long acting injections Problems Identified/Issues Discussed: alteration in mood alteration in cognition alteration in self care' Medical Problems: per chart Diagnostic Results: per psychiatry per medicine per nursing per social work DSM 5 Symptoms Update: alteration in thought alteration in mood Medication Change: Yes (abilify 10mg po am, seroquel 300mg po hs, cogentin 1mg po am and 1mgpo 2200) Medical Record Reviewed: Yes Consults ordered or reviewed: hospitalist Mental Status Examination - Cognitive Function Orientation: Person, Place, Situation, Time - Mood Mood: Depressed - Affect Affect: Constricted - Formal Thought Process Formal Thought Process: Hallucinations, Delusions, Paranoia - Homicidal Ideation Homicidal Ideation: No Goal/Treatment Plan - Goal/Treatment Plan Progress Toward Problem(s) and Goals/Treatment Plan: admission per attending vital signs and clinical observation per protocol and per status hospitalist consult discharge planning in progress Estimated Date of D/C: 07/14/16 - Smoking Cessation Smoking Cessation Initiated: No Reason for not providing: deferred
--- NOTE | 2016-07-12 12:09 | PCM.PYCHPN ---
Psychiatric Progress Note - Psychiatric Progress Note Patient seen today, length of contact: discussed with team Patient Chief Complaint: i need to go to [facility] Problems Identified/Issues Discussed: pt states he needs to go intermediate because "my psychosis is really bad" his ekg shows qtc of 480. he states he tried to od on geodon recently. he denies any chest pain or palpitations currently. he is anxious. Medication Change: No ( ) Medical Record Reviewed: Yes Mental Status Examination - Cognitive Function Orientation: Person, Place, Situation, Time Memory: Intact Attention: WNL Concentration: WNL Association: WN Fund of Knowledge: [facility] Decription of patient's judgement and insights: questionable insight/judgment - Mood Mood: Depressed - Affect Affect: Constricted - Speech Speech: Appropriate - Formal Thought Process Formal Thought Process: Hallucinations, Delusions, Paranoia Psychotic Thoughts and Behaviors: paranoid, internally preoccupied - Suicidal Ideation Suicidal Ideation: No - Homicidal Ideation Homicidal Ideation: No Goal/Treatment Plan - Goal/Treatment Plan Need for Continued Stay: Remain at risks for inpatient hospitalization, Severe functional impairment Progress Toward Problem(s) and Goals/Treatment Plan: schizoaffective disorder alcohol dependence will continue current treatment check ekg tomorrow disposition planing Estimated Date of D/C: 07/14/16
--- NOTE | 2016-07-13 13:42 | PCM.PYCHPN ---
Psychiatric Progress Note - Psychiatric Progress Note Patient seen today, length of contact: in treatment team Patient Chief Complaint: i need to go to [facility] Problems Identified/Issues Discussed: pt continues to stay his psychosis is bad. states he needs [facility]. has been hospitalized most of last 2 months and seems hopeless about getting better. fixated on geodon. was apparently on geodon at [facility] along with prolixin. agreeable to have an ekg done. denies any thoughts to harm self or others on the unit. states he has thoughts to hurt his family. he is irritable in team Medication Change: No ( ) Medical Record Reviewed: Yes Mental Status Examination - Cognitive Function Orientation: Person, Place, Situation, Time Memory: Intact Attention: WNL Concentration: WNL Association: WNL Fund of Knowledge: WN Decription of patient's judgement and insights: questionable insight/judgment - Mood Mood: Depressed, Anxious - Affect Affect: Constricted - Speech Speech: Appropriate - Formal Thought Process Formal Thought Process: Hallucinations, Delusions, Paranoia Psychotic Thoughts and Behaviors: paranoid, internally preoccupied, perseverating on wanting to go to [facility] - Suicidal Ideation Suicidal Ideation: No - Homicidal Ideation Homicidal Ideation: No Goal/Treatment Plan - Goal/Treatment Plan Need for Continued Stay: Remain at risks for inpatient hospitalization, Severe functional impairment Progress Toward Problem(s) and Goals/Treatment Plan: schizoaffective disorder alcohol dependence will continue current treatment check ekg t/c restarting geodon depending on ekg disposition planing Estimated Date of D/C: 07/14/16
--- NOTE | 2016-07-13 15:59 | CARD ---
APPROVED REPORT EKG Measurement Heart [id number] [place] [id number] <Conclusion> Normal sinus rhythm Normal ECG
[2016-07-13] MEDS: Albuterol HFA 90 mcg/actuation (8 g) INH PRN (16:18)
--- NOTE | 2016-07-14 10:07 | CARD ---
APPROVED REPORT EKG Measurement Heart [id number] [place] 136P38 [id number] <Conclusion> Normal sinus rhythm Normal ECG
--- NOTE | 2016-07-14 14:30 | PCM.PYCHPN ---
Psychiatric Progress Note - Psychiatric Progress Note Patient seen today, length of contact: discussed with team Patient Chief Complaint: i want to go pen[facility]iary Problems Identified/Issues Discussed: pt started back on his prolixin and geodon after repeat ekg was reviewed. he seems pleased with this. he is still isolative and internally preoccupied. he denies suicidal thoughts. Medication Change: No ( ) Medical Record Reviewed: Yes Mental Status Examination - Cognitive Function Orientation: Person, Place, Situation, Time Memory: Intact Attention: WNL Concentration: WNL Association: [facility] Fund of Knowledge: [facility] Decription of patient's judgement and insights: questionable insight/judgment - Mood Mood: Depressed, Anxious - Affect Affect: Constricted - Speech Speech: Appropriate - Formal Thought Process Formal Thought Process: Hallucinations, Delusions, Paranoia Psychotic Thoughts and Behaviors: paranoid, internally preoccupied, perseverating on wanting to go to [facility] - Suicidal Ideation Suicidal Ideation: No - Homicidal Ideation Homicidal Ideation: No Goal/Treatment Plan - Goal/Treatment Plan Need for Continued Stay: Remain at risks for inpatient hospitalization, Severe functional impairment Progress Toward Problem(s) and Goals/Treatment Plan: schizoaffective disorder alcohol dependence restart geodon and prolixin and titrate dose encourage to attend groups. Estimated Date of D/C: 07/14/16
--- NOTE | 2016-07-15 13:25 | PCM.PYCHPN ---
Psychiatric Progress Note - Psychiatric Progress Note Patient seen today, length of contact: discussed with team Patient Chief Complaint: my neck got stiff Problems Identified/Issues Discussed: pt much less intrusive today. he reported a stiff neck yesterday. good response to cogentin. he is still internally preoccupied. no shortness of breath. still focused on going to a correction facility. Medication Change: No ( ) Medical Record Reviewed: Yes Mental Status Examination - Cognitive Function Orientation: Person, Place, Situation, Time Memory: Intact Attention: WNL Concentration: WNL Association: WNL Fund of Knowledge: WN Decription of patient's judgement and insights: questionable insight/judgment - Mood Mood: Depressed, Anxious - Affect Affect: Constricted - Speech Speech: Appropriate - Formal Thought Process Formal Thought Process: Hallucinations, Delusions, Paranoia Psychotic Thoughts and Behaviors: paranoid, internally preoccupied, perseverating on wanting to go to correction - Suicidal Ideation Suicidal Ideation: No - Homicidal Ideation Homicidal Ideation: No Goal/Treatment Plan - Goal/Treatment Plan Need for Continued Stay: Remain at risks for inpatient hospitalization, Severe functional impairment Progress Toward Problem(s) and Goals/Treatment Plan: schizoaffective disorder alcohol dependence jalen ashraf will continue nilam with lacy encourage to attend groups. Estimated Date of D/C: 07/14/16
[2016-07-16] MEDS: Albuterol HFA 90 mcg/actuation (8 g) INH PRN (09:57)
--- NOTE | 2016-07-16 09:59 | PCM.PYCHPN ---
Psychiatric Progress Note - Psychiatric Progress Note Patient seen today, length of contact: discussed with team Patient Chief Complaint: i need my geodon higher Problems Identified/Issues Discussed: pt more focused today. continues to report "bad thoughts" he is taking medications. he denies side effects. attempts to attend groups. Medication Change: No ( ) Medical Record Reviewed: Yes Mental Status Examination - Cognitive Function Orientation: Person, Place, Situation, Time Memory: Intact Attention: WNL Concentration: WNL Association: WNL Fund of Knowledge: [facility] Decription of patient's judgement and insights: fair insight/judgment - Mood Mood: Anxious - Affect Affect: Constricted - Speech Speech: Appropriate - Formal Thought Process Formal Thought Process: Hallucinations, Delusions, Paranoia Psychotic Thoughts and Behaviors: paranoid, internally preoccupied - Suicidal Ideation Suicidal Ideation: No - Homicidal Ideation Homicidal Ideation: No Goal/Treatment Plan - Goal/Treatment Plan Need for Continued Stay: Remain at risks for inpatient hospitalization, Severe functional impairment Progress Toward Problem(s) and Goals/Treatment Plan: schizoaffective disorder alcohol dependence dc prolixin will continue geodon(increase to 80mg bid) with cogentin encourage to attend groups. Estimated Date of D/C: 07/14/16
[2016-07-17] MEDS: Albuterol HFA 90 mcg/actuation (8 g) INH PRN (09:03)
--- NOTE | 2016-07-17 10:34 | PCM.PYCHPN ---
Psychiatric Progress Note - Psychiatric Progress Note Patient seen today, length of contact: discussed with team Patient Chief Complaint: pt remains very internally preoccupied and still halluciinating DSM 5 Symptoms Update: schizoaffective disorder Medication Change: No ( ) Medical Record Reviewed: Yes Mental Status Examination - Cognitive Function Orientation: Person, Place, Situation, Time Memory: Intact Attention: WNL Concentration: WNL Association: WNL Fund of Knowledge: WNL - Mood Mood: Anxious - Affect Affect: Constricted - Speech Speech: Appropriate - Formal Thought Process Formal Thought Process: Hallucinations, Delusions, Paranoia - Suicidal Ideation Suicidal Ideation: No - Homicidal Ideation Homicidal Ideation: No Goal/Treatment Plan - Goal/Treatment Plan Need for Continued Stay: Remain at risks for inpatient hospitalization, Severe functional impairment Progress Toward Problem(s) and Goals/Treatment Plan: will continue to further titrate geodon to stabilize the pt and engage pt in therapy Estimated Date of D/C: 07/14/16
[2016-07-18] MEDS: Albuterol HFA 90 mcg/actuation (8 g) INH PRN (09:24)
--- NOTE | 2016-07-18 18:26 | PCM.PYCHPN ---
Psychiatric Progress Note - Psychiatric Progress Note Patient seen today, length of contact: discussed with team Patient Chief Complaint: pt remains very internally preoccupied and still halluciinating Medication Change: No ( ) Medical Record Reviewed: Yes Mental Status Examination - Cognitive Function Orientation: Person, Place, Situation, Time Memory: Intact Attention: WNL Concentration: WNL Association: WNL Fund of Knowledge: WNL - Mood Mood: Anxious - Affect Affect: Constricted - Speech Speech: Appropriate - Formal Thought Process Formal Thought Process: Hallucinations, Delusions, Paranoia - Suicidal Ideation Suicidal Ideation: No - Homicidal Ideation Homicidal Ideation: No Goal/Treatment Plan - Goal/Treatment Plan Need for Continued Stay: Remain at risks for inpatient hospitalization, Severe functional impairment Progress Toward Problem(s) and Goals/Treatment Plan: will continue to further titrate geodon to stabilize the pt and engage pt in therapy Estimated Date of D/C: 07/14/16
[2016-07-19] MEDS: Albuterol HFA 90 mcg/actuation (8 g) INH PRN ×2 (09:09→17:23)
--- NOTE | 2016-07-19 16:13 | PCM.PYCHPN ---
Psychiatric Progress Note - Psychiatric Progress Note Patient seen today, length of contact: chart reviewed, case discussed w/team Patient Chief Complaint: taking geodon 80mg po bid with benadry bid and hs feeling little calmer continues to talk about wanting to go to [facility] fear of relapsing drinking. staff report pt is seen more about unit. is rx adherent. Problems Identified/Issues Discussed: alteration in mood alteration in cognition alteration in self care' Medical Problems: per chart Diagnostic Results: per psychiatry per medicine per nursing per social work DSM 5 Symptoms Update: focused on [facility] fear of relapse etoh defers long acting injectables Medication Change: No ( ) Medical Record Reviewed: Yes Mental Status Examination - Cognitive Function Orientation: Person, Place, Situation, Time Memory: Intact Attention: WNL Concentration: WNL Association: WNL Fund of Knowledge: WN Decription of patient's judgement and insights: poor - Mood Mood: Anxious - Affect Affect: Constricted - Speech Speech: Appropriate - Formal Thought Process Formal Thought Process: Hallucinations, Delusions, Paranoia Psychotic Thoughts and Behaviors: less voices commentary non command - Suicidal Ideation Suicidal Ideation: No - Homicidal Ideation Homicidal Ideation: No Goal/Treatment Plan - Goal/Treatment Plan Need for Continued Stay: Remain at risks for inpatient hospitalization, Severe functional impairment Progress Toward Problem(s) and Goals/Treatment Plan: inpt milieu adjust meds per clincial status vital signs and clinical observation per protocol and per status being followed by hospital consult discharge planning in progress Estimated Date of D/C: 07/14/16 - Smoking Cessation Smoking Cessation Initiated: No Reason for not providing: deferred
--- NOTE | 2016-07-20 14:13 | PCM.PYCHPN ---
Psychiatric Progress Note - Psychiatric Progress Note Patient seen today, length of contact: in treatment team Patient Chief Complaint: i need to go to [facility] Problems Identified/Issues Discussed: pt seems to be improving, but does not agree with teams assessment that he is doing better. continues to state he needs half-way treatment. still appears to be paranoid, or trying to be paranoid as he is looking around and outside of the door while in treatment team today. no c/o chest pain, shortness or breath or palpitations. states the geodon isn't working Medication Change: No ( ) Medical Record Reviewed: Yes Mental Status Examination - Cognitive Function Orientation: Person, Place, Situation, Time Memory: Intact Attention: WNL Concentration: WNL Association: [facility] Fund of Knowledge: [facility] Decription of patient's judgement and insights: fair - Mood Mood: Anxious - Affect Affect: Constricted - Speech Speech: Appropriate - Formal Thought Process Formal Thought Process: Hallucinations, Delusions, Paranoia - Suicidal Ideation Suicidal Ideation: No - Homicidal Ideation Homicidal Ideation: No Goal/Treatment Plan - Goal/Treatment Plan Need for Continued Stay: Remain at risks for inpatient hospitalization, Severe functional impairment Progress Toward Problem(s) and Goals/Treatment Plan: schizoaffective disorder alcohol dependence continue geodon 80mg bid with cogentin start seroquel 50mg hs check ekg tomorrow encourage to attend groups. Estimated Date of D/C: 07/14/16
--- NOTE | 2016-07-20 17:01 | CARD ---
APPROVED REPORT EKG Measurement Heart [id number] <Conclusion> Normal sinus rhythm Normal ECG
--- NOTE | 2016-07-21 15:41 | PCM.PYCHPN ---
Psychiatric Progress Note - Psychiatric Progress Note Patient seen today, length of contact: in treatment team Patient Chief Complaint: yesterday was the worse its been Problems Identified/Issues Discussed: pt more calm, focused, but attempts to present himself as doing worse. he reports he has "bad thoughts" but is vague about details. does not appear to be responding to internal stimuli. he reports he needs benadryl because of side effects, yet wants more geodon. he is isolating in room from peers. Medication Change: No ( ) Medical Record Reviewed: Yes Mental Status Examination - Cognitive Function Orientation: Person, Place, Situation, Time Memory: Intact Attention: WNL Concentration: WNL Association: WN Fund of Knowledge: [facility] Decription of patient's judgement and insights: fair - Mood Mood: Anxious - Affect Affect: Constricted - Speech Speech: Appropriate - Formal Thought Process Formal Thought Process: Hallucinations, Delusions, Paranoia - Suicidal Ideation Suicidal Ideation: No - Homicidal Ideation Homicidal Ideation: No Goal/Treatment Plan - Goal/Treatment Plan Need for Continued Stay: Remain at risks for inpatient hospitalization, Severe functional impairment Progress Toward Problem(s) and Goals/Treatment Plan: schizoaffective disorder alcohol dependence continue geodon 80mg bid with cogentin continue seroquel 50mg hs ekg reviewed qtc 425 encourage to attend groups. Estimated Date of D/C: 07/14/16
[2016-07-21] MEDS: Albuterol HFA 90 mcg/actuation (8 g) INH PRN (19:54)
--- NOTE | 2016-07-22 08:36 | PCM.PYCHPN ---
Psychiatric Progress Note - Psychiatric Progress Note Patient seen today, length of contact: discussed with team Patient Chief Complaint: i don't feel good Problems Identified/Issues Discussed: pt refusing to take geodon now. states he feels his tongue is stiff when he takes it. doesn't feel it helps his voices. he is irritable. pt expressing thoughts that nothing will help. Medication Change: No ( ) Medical Record Reviewed: Yes Mental Status Examination - Cognitive Function Orientation: Person, Place, Situation, Time Memory: Intact Attention: WNL Concentration: WNL Association: WN Fund of Knowledge: [facility] Decription of patient's judgement and insights: fair - Mood Mood: Anxious - Affect Affect: Constricted - Speech Speech: Appropriate - Formal Thought Process Formal Thought Process: Hallucinations, Delusions, Paranoia - Suicidal Ideation Suicidal Ideation: No - Homicidal Ideation Homicidal Ideation: No Goal/Treatment Plan - Goal/Treatment Plan Need for Continued Stay: Remain at risks for inpatient hospitalization, Severe functional impairment Progress Toward Problem(s) and Goals/Treatment Plan: schizoaffective disorder alcohol dependence dc geodon increase seroquel to 50mg tid encourage to attend groups. Estimated Date of D/C: 07/14/16
[2016-07-22] MEDS: Albuterol HFA 90 mcg/actuation (8 g) INH PRN (14:42)
[2016-07-23] MEDS: Albuterol HFA 90 mcg/actuation (8 g) INH PRN (08:44)
--- NOTE | 2016-07-23 12:10 | PCM.PYCHPN ---
Psychiatric Progress Note - Psychiatric Progress Note Patient seen today, length of contact: discussed with team Patient Chief Complaint: i want to leave Problems Identified/Issues Discussed: pt needs maximum prompting to take medications. he is complaining that nothing is helping and he is demanding to leave. he isolates in room. he is irritable and unpredictable. he sits in his room and yells and talks to self. he has disrupted the milieu with his screaming. he is grossly disorganized in appearance and thoughts. Medication Change: Yes (increase seroquel) Medical Record Reviewed: Yes Mental Status Examination - Cognitive Function Orientation: Person, Place, Situation, Time Memory: Intact Attention: WNL Concentration: WNL Association: WNL Fund of Knowledge: WN Decription of patient's judgement and insights: poor i/j. poor impulse control - Mood Mood: Anxious - Affect Affect: Constricted - Speech Speech: Appropriate - Formal Thought Process Formal Thought Process: Hallucinations, Delusions, Paranoia Psychotic Thoughts and Behaviors: poor impulse control - Suicidal Ideation Suicidal Ideation: No - Homicidal Ideation Homicidal Ideation: No Goal/Treatment Plan - Goal/Treatment Plan Need for Continued Stay: Remain at risks for inpatient hospitalization, Severe functional impairment Progress Toward Problem(s) and Goals/Treatment Plan: schizoaffective disorder alcohol dependence have increased seroquel will screen for involuntary hospitalization as pt is not fully adherent to treatment, is impulsive, irritable and unable to care for self in unstructured setting. his behaviors appear to be threatening to others. Estimated Date of D/C: 07/14/16
[2016-07-23 16:59] LABS: RBC URINE 1 /hpf (0-3); URINE BACTERIA RARE (<OCC); URINE BILIRUBIN NEGATIVE (NEGATIVE); URINE BLOOD NEGATIVE (NEGATIVE); URINE COLOR STRAW (YELLOW); URINE GLUCOSE (UA) NEG (Normal); URINE KETONE NEGATIVE (NEGATIVE); URINE LEUKOCYTE ESTERASE NEG Leu/uL (Negative); URINE PROTEIN NEGATIVE (NEGATIVE); URINE UROBILINOGEN 0.2-1.0 mg/dL (0.2-1.0); WBC URINE 1 /hpf (0-5)
[2016-07-23 18:00] LABS: BASO # 0.1 K/uL (0.0-0.2); BASO % 0.9 % (0.0-2.0); EOS # 0.5 K/uL (0.0-0.7); HEMATOCRIT 42.3 % (35.0-51.0); LYMPH # 1.4 K/uL (1.0-4.3); LYMPH % 18.7 % (20.0-40.0); MEAN CELL VOLUME 85.5 fl (80.0-94.0); MEAN CORPUSCULAR HGB CONC 32.7 g/dL (33.0-37.0); MONO # 1.9 K/uL (0.0-0.8); MONO % 25.1 % (0.0-10.0); NEUT # 3.8 K/uL (1.8-7.0); NEUT % 49.3 % (50.0-75.0); PLATELET COUNT 305 K/uL (130-400); RED CELL DISTRIBUTION WIDTH 15.4 % (11.5-14.5); WHITE BLOOD COUNT 7.7 K/uL (4.8-10.8)
[2016-07-23 18:21] LABS: ALB/GLOB RATIO 1.3 (1.0-2.1); ALKALINE PHOSPHATASE 71 U/L (38-126); ALT/SGPT 45 U/L (21-72); AST/SGOT 28 U/L (17-59); BILIRUBIN,TOTAL 0.3 mg/dl (0.2-1.3); BLOOD UREA NITROGEN 15 mg/dl (9-20); CALCIUM 9.6 mg/dL (8.4-10.2); CARBON DIOXIDE 26 mmol/L (22-30); CHLORIDE 100 mmol/L (98-107); GFR AFRICAN-AMERICAN > 60; GLUCOSE,RANDOM 82 mg/dL (75-110); POTASSIUM 3.9 MMOL/L (3.6-5.0); SODIUM 138 mmol/l (132-148); TOTAL PROTEIN 8.6 G/DL (6.3-8.2)
[2016-07-23 18:44] LABS: EOSINOPHIL 5 % (0-7); NEUTROPHIL 62 % (42-75); TOTAL CELLS COUNTED 100
--- NOTE | 2016-07-24 12:26 | PCM.PYCHPN ---
Psychiatric Progress Note - Psychiatric Progress Note Patient seen today, length of contact: discussed with team Patient Chief Complaint: voices are a little better Problems Identified/Issues Discussed: pt still isolating in room. talking to self in room constantly. irritable upon approach. states he feels a bit more calm. denies side effects with seroquel. still wants to leave the hospital. Medication Change: Yes (increase seroquel) Medical Record Reviewed: Yes Mental Status Examination - Cognitive Function Orientation: Person, Place, Situation, Time Memory: Intact Attention: WNL Concentration: WNL Association: WNL Fund of Knowledge: [facility] Decription of patient's judgement and insights: poor i/j. poor impulse control - Mood Mood: Anxious - Affect Affect: Constricted - Speech Speech: Appropriate - Formal Thought Process Formal Thought Process: Hallucinations, Delusions, Paranoia Psychotic Thoughts and Behaviors: poor impulse control - Suicidal Ideation Suicidal Ideation: No - Homicidal Ideation Homicidal Ideation: No Goal/Treatment Plan - Goal/Treatment Plan Need for Continued Stay: Remain at risks for inpatient hospitalization, Severe functional impairment Progress Toward Problem(s) and Goals/Treatment Plan: schizoaffective disorder alcohol dependence have increased seroquel [place] [facility] [place]- pt has submitted 48hr notice, grossly disorganized Estimated Date of D/C: 07/14/16
[2016-07-25] MEDS: Albuterol HFA 90 mcg/actuation (8 g) INH PRN (08:28)
[2016-07-25 10:10] VITALS: BP 120/64; PULSE 78; RESP 20; TEMP 97.9; O2SAT 99
--- NOTE | 2016-07-25 12:15 | PCM.PYCHDC ---
Mental Status Examination - Mental Status Examination Orientation: Person, Place, Situation, Time Memory: Intact Mood: Anxious, Other (irritated) Affect: Constricted Speech: Loud Attention: WNL Concentration: Poor Association: WNL Fund of Knowledge: Poor Formal Thought Process: Hallucinations (at this time he denies any hallucinations.) Description of patient's judgement and insight: poor i/j. Psychotic Thoughts and Behaviors: poor impulse control, internally preoccupied. complaint of voices comes and goes , but now states seroquel helps. is obsessed with going to [facility]. Suicidal Ideation: No Current Homicidal Ideation?: No Plan: denies any suicidal or homicidal thoughts/plans or intent Discharge Summary - Discharge Note Reason for Hospitalization: auditory hallucinations, states he tried to overdose on medications (but pt has multiple bottles of medications that are all full) Psychiatric History (includes Medical, Family, Personal Hx): history of schizoaffective disorder, prior hospitalizations Consultations:: List each consultation separately and include: 1. Reason for request. 2. Findings. 3. Follow-up Consultations: seen by the hospitalist Summary of Hospital Course include:: 1. Description of specific treatment plan utilized for patients during their course of treatmen. 2. Summarize the time- course for resolution of acute symptoms and/or regressed behaviors. 3. Describe issues identified and worked on during hospitalization. 4. Describe medication utilized. 5. Describe medical problems identified and treated. 6. Reassessment of suicide risk Summary of Hospital Course: pt was admitted to [facility] and oriented to the unit. the pt was placed on the medications he had been taking at [facility] in the week prior to this admission- prolixin and geodon, but he claimed to have a dystonic reaction. the prolixin was discontinued and the geodon was increased as the patient was stating this was the only medication that worked. the patient then refused to take geodon and stated it wasn't working. he did allow seroquel and the dose was titrated up to 100mg bid and 100mg at hs with good effect. pt remained focused on going to [facility] and was angry that this facility could not transfer him there. he became irritated and stating that he was not getting help here and signed a 48 hour notice. he was screened by [facility] and was not found to meet the criteria to be transferred there for further assessment. the patient refused to retract his 48 hour notice to allow the team to refer him to aftercare. he demanded to leave. this documentation writer called the pt's mother at and discussed the plan of action. this documentation writer warned the mother that pt had made threats to harm her and his grandmother. the mother stated that the pt never acted on his threats and she did not have any fears of him coming home. the patient, however did not want to return to his mothers house. the mother even offered to pay for a taxi to come and get the pt and bring him home. the patient only stated he would try to go to the police and go to [place] at the time of discharge. we discussed risks of leaving including continued psychosis and lack of follow up. discussed benefits of staying- further titration of meds and arranging proper aftercare. pt refused to stay. please not pt had several bottles of medication from previous hospitals all full. including prolixin, cogentin x2 bottles, vistaril, geodon (multiple bottles) the prolixin and geodon were returned to pharmacy to we dispensed of. the oldest bottle of cogentin was returned to pharmacy. the vistaril and cogentin were returned to pt as they were currently prescribed. - Final Diagnosis (DSM 5) Condition upon Discharge: FAIR DSM 5: schizoaffective disorder intellectual disability, mild Disposition: AGAINST MEDICAL ADVICE Follow-up Treatment Plan: pt signed out of the hospital against medical advice his appropriate medications were returned and scripts of 2 weeks ok klonopin and seroquel were provided pt advised to call 911 if any suicidal or homicidal thoughts instructed to abstain from alcohol, tobacco or other illicit substances mother aware of pt's discharge and threats pt had made towards her in the past. he was denying any thoughts to harm his mother currently and did not want to see his mother. Prescriptions/Medication Reconciliation: Benztropine [Cogentin] 1 mg PO BID #30 tab clonazePAM [Klonopin] 1 mg PO BID #30 tab hydrOXYzine Pamoate [Vistaril] 50 mg PO Q8 PRN #15 cap PRN Reason: Anxiety QUEtiapine [Seroquel] 100 mg PO BID #30 tab QUEtiapine [SEROquel] 200 mg PO HS #15 tab - Smoking Cessation Smoking Cessation Medication prescribed: No - Antipsychotic Medications Pt discharged on 2 or more routine antipsychotic medications: No
== END 2016-07-25 12:25 | disposition home or self-care (01) | DRG 430 ==
LOC: H.ER 13:10 → H.EROBSV 15:06 → H.ERHOLD 20:26 → OBSVTOIN 20:26 → H.PSYCH 22:53
PROVIDERS: ADMIT Psychiatry & Neurology Psychiatry; ATTEND Psychiatry & Neurology Psychiatry
PROC: GZ51ZZZ Individual Psychotherapy, Behavioral (ICD-10-PCS; 2016-07-10)
PROC: GZHZZZZ Group Psychotherapy (ICD-10-PCS; principal; 2016-07-15)
DX: F25.9 Schizoaffective disorder, unspecified (principal); F20.0 Paranoid schizophrenia; I10 Essential (primary) hypertension; F10.20 Alcohol dependence, uncomplicated; F31.9 Bipolar disorder, unspecified; F70 Mild intellectual disabilities; J45.909 Unspecified asthma, uncomplicated; M43.6 Torticollis; Z87.891 Personal history of nicotine dependence; F32.9 Major depressive disorder, single episode, unspecified; F41.9 Anxiety disorder, unspecified; K29.70 Gastritis, unspecified, without bleeding

== ENCOUNTER 2016-08-17 18:29 | Inpatient (IN) | payer MEDICAID ==
[2016-08-17 18:29] VITALS: BMI 26.2
[2016-08-17 18:38] VITALS: O2SAT 97
[2016-08-17 20:21] LABS: BASO # 0.1 K/uL (0.0-0.2); BASO % 0.9 % (0.0-2.0); EOS # 0.5 K/uL (0.0-0.7); EOS % 8.5 % (0.0-4.0); HEMOGLOBIN 13.3 g/dL (12.0-18.0); LYMPH # 1.4 K/uL (1.0-4.3); LYMPH % 22.9 % (20.0-40.0); MEAN CELL VOLUME 85.2 fl (80.0-94.0); MEAN CORPUSCULAR HEMOGLOBIN 27.8 pg (27.0-31.0); MEAN CORPUSCULAR HGB CONC 32.6 g/dL (33.0-37.0); MEAN PLATELET VOLUME 9.1 fl (7.2-11.7); MONO # 0.7 K/uL (0.0-0.8); MONO % 11.7 % (0.0-10.0); NEUT # 3.5 K/uL (1.8-7.0); NRBC % 0.1 % (0.0-0.0); RBC 4.78 Mil/uL (4.40-5.90); RED CELL DISTRIBUTION WIDTH 15.6 % (11.5-14.5); WHITE BLOOD COUNT 6.2 K/uL (4.8-10.8)
--- NOTE | 2016-08-17 20:23 | ED PDOC ---
HPI: Psych/Substance Abuse Time Seen by Provider: 08/17/16 19:05 Chief Complaint (Nursing): Psychiatric Evaluation Chief Complaint (Provider): pyysch eval ED Caveat: Intoxicated Additional Complaint(s): 41 yo M in ED for eval of SI and HI-with plan to take knife to kill people around him. admits to drinking, is very depressed and crying. denies hallucainations. however does not provide further detail to MLP-refuses to speak. Past Medical History Reviewed: Historical Data, Nursing Documentation, Vital Signs Vital Signs: Last Vital Signs Temp 98.2 F 08/17/16 18:35 Pulse 91 H 08/17/16 18:35 Resp 18 08/17/16 18:35 BP 122/73 08/17/16 18:35 Pulse Ox 97 08/17/16 18:35 - Medical History PMH: Anxiety, Asthma, Bipolar Disorder, Depression, Gastritis, Schizophrenia Denies: Diabetes, Hepatitis, HIV, HTN, Chronic Kidney Disease, Seizures, Sexually Transmitted Disease - Family History Family History: States: Unknown Family Hx - Immunization History Hx Tetanus Toxoid Vaccination: No Hx Influenza Vaccination: No Hx Pneumococcal Vaccination: No - Home Medications Home Medications: Ambulatory Orders Medication Instructions Recorded DiphenhydrAMINE [Benadryl] 25 mg PO PRN PRN 08/16/16 QUEtiapine [SEROquel] 100 mg PO DAILY 08/16/16 Quetiapine Fumarate [Seroquel] 400 mg PO DAILY 08/16/16 - Allergies Allergies/Adverse Reactions: Allergies Allergy/AdvReac Type Severity Reaction Status Date / Time haloperidol [From Haldol] Allergy ANAPHYLAXIS Verified 08/17/16 18:35 haloperidol lactate Allergy ANAPHYLAXIS Verified 08/17/16 18:35 [From Haldol] Review of Systems ROS Statement: Except As Marked, All Systems Reviewed And Found Negative Psych: Positive for: Depression, Psychosis, Suicidal ideation Physical Exam - Reviewed Nursing Documentation Reviewed: Yes Vital Signs Reviewed: Yes - Physical Exam Appears: Positive for: Non-toxic, No Acute Distress Skin: Positive for: Normal Color, Warm, DRY Eye Exam: Positive for: Normal appearance, EOMI, PERRL Cardiovascular/Chest: Positive for: Regular Rate, Rhythm Respiratory: Positive for: CNT, Normal Breath Sounds Gastrointestinal/Abdominal: Positive for: Normal Exam, Bowel Sounds, Soft Neurologic/Psych: Positive for: Alert, Oriented, Mood/Affect (upset, depressed.) - Laboratory Results Result Diagrams: 08/17/16 20:00 08/17/16 21:00 - ECG ECG Rhythm: Positive for: Normal QRS, Normal ST Segment, Sinus Rhythm O2 Sat by Pulse Oximetry: 97 - Progress ED Course And Treament: crisis evaluation. Medical Decision Making Medical Decision Making: pt evaluated by crisis with schizophrenia under MD rebecca Chest xray was done in May 2016:NAD Pt is medically cleared for admission. Disposition - Clinical Impression Clinical Impression: Schizophrenia - Patient ED Disposition Is Patient to be Admitted: Yes - Disposition Disposition Time: 21:54 Condition: STABLE - Pt Status Changed To: Hospital Disposition Of: Inpatient - Admit Certification Admit to Inpatient:: After my assessment, the patient will require hospitalization for at least two midnights. This is because of the severity of symptoms shown, intensity of services needed, and/or the medical risk in this patient being treated as an outpatient.
[2016-08-17] MEDS ORDERED: Albuterol-Ipratrop 3 mg / 0.5 (3 ml) UD ONE (20:46)
[2016-08-17 20:51] LABS: BARBITURATES, UR NEGATIVE (NEGATIVE); BENZODIAZEPINES, UR NEGATIVE (NEGATIVE); OPIATES, UR NEGATIVE (NEGATIVE); PHENCYCLIDINE, UR NEGATIVE (NEGATIVE)
[2016-08-17] MEDS ORDERED: Albuterol-Ipratrop 3 mg / 0.5 (3 ml) UD INH STA (20:55)
[2016-08-17 21:08] LABS: ALB/GLOB RATIO 1.3 (1.0-2.1); ALT/SGPT 40 U/L (21-72); AST/SGOT 26 U/L (17-59); BLOOD UREA NITROGEN 7 mg/dl (9-20); CALCIUM 9.3 mg/dL (8.4-10.2); GFR AFRICAN-AMERICAN > 60; GFR NON-AFRICAN AMERICAN > 60
[2016-08-17] MEDS ORDERED: Alum-Mag Hydrox-Simethicone Susp (30 mL) PO PRN (23:17)
[2016-08-17] MEDS ORDERED: Magnesium Hydroxide Susp 30 ml UD PO PRN (23:17)
[2016-08-17] MEDS ORDERED: DiphenhydrAMINE 50 mg/ml Inj IM PRN (23:17)
[2016-08-18] MEDS ORDERED: Albuterol HFA 90 mcg/actuation (8 g) INH PRN (00:30)
[2016-08-18] MEDS: [UNRECOGNIZED DRUG - OTHER] INH PRN ×2 (06:40→19:56)
[2016-08-18 07:03] LABS: T4 6.12 ug/dl (5.5-11.0)
--- NOTE | 2016-08-18 08:35 | CARD ---
APPROVED REPORT EKG Measurement Heart [id number] <Conclusion> Normal sinus rhythm Normal ECG
[2016-08-18] MEDS: Albuterol-Ipratrop 3 mg / 0.5 (3 ml) UD INH PRN (11:34)
--- NOTE | 2016-08-18 13:44 | PCM.PSYCH ---
Initial Psychiatric Evaluation - Initial Psychiatric Evaluation Type of Admission: Voluntary Legal Status: Capacity Chief Complaint (in patient's own words): i want to go to [facility] Patient's Reaction to Hospitalization: i don't want to talk about the old stuff History of Present Illness and Precipitating Events: pt has been back and forth from to [facility] in last months and continues to contact police stating he does not feel safe and wants to go to the hospital. pt has not stayed out of hospital more than 3 days between last two discharges despite having a place to stay. he states he always hears voices and the medications don't work. he is expressing paranoid thoughts and becomes very defensive and guarded when asked bout any ssi he gets. he has made threats in past to harm family and he states now "i just cant live there...i don't want to talk about it. " he continues to perseverate on discharge and is not responsive to teaching about process of going to [facility]. Current Medications: Active Medications Generic Name Dose Route Start Last Admin Trade Name Adrian PRN Reason Stop Dose Admin Acetaminophen 650 mg 08/17/16 23:17 Tylenol 325mg Tab PO Q4 PRN Pain, moderate (4-7) Al Hydrox/Mg Hydrox/Simethicone 30 ml 08/17/16 23:17 Maalox Plus 30 Ml PO Q4 PRN Dyspepsia Albuterol/Ipratropium 3 ml 08/18/16 06:22 08/18/16 11:34 Duoneb 3 Mg/0.5 Mg (3 Ml) Ud INH 3 ml RQ6 PRN Administration Shortness of Breath Diphenhydramine HCl 50 mg 08/17/16 23:17 Benadryl IM Q6 PRN Extrapyramidal S/S Unable PO Diphenhydramine HCl 50 mg 08/17/16 23:17 Benadryl PO Q6 PRN Extrapyramidal Symptoms Diphenhydramine HCl 50 mg 08/17/16 23:20 Benadryl PO HS PRN Sleep Fluphenazine HCl 5 mg 08/17/16 23:00 08/17/16 23:14 Prolixin PO 5 mg HS DEYANIRA Administration Fluphenazine HCl 5 mg 08/18/16 09:00 08/18/16 11:32 Prolixin PO 5 mg DAILY DEYANIRA Administration Home Med 2 unit 08/18/16 03:45 08/18/16 06:40 Patient's Own Medication INH 2 unit RQ4 PRN Administration SHORTNESS OF BREATH Lorazepam 2 mg 08/17/16 23:17 Ativan IM Q4 PRN Anxiety/Agitation,Unable PO Lorazepam 2 mg 08/17/16 23:17 Ativan PO Q4 PRN Anxiety/Agitation Magnesium Hydroxide 30 ml 08/17/16 23:17 Milk Of Magnesia PO HS PRN Constipation Quetiapine Fumarate 400 mg 08/17/16 23:00 08/17/16 23:14 Seroquel PO 400 mg HS DEYANIRA Administration Quetiapine Fumarate 100 mg 08/18/16 09:00 Seroquel PO DAILY DEYANIRA started on prolixin dec at Past Psychiatric History - Past Psychiatric History Previous Treatment History: Inpatient Prior Professional Help: multiple admissions At what hospital: august 13 2016 History of Abuse: denies History of ETOH/Drug Use: drinks alcohol- bal 68. states "i only drank once in last few months" denies other substance use. does not smoke cigarettes. History of Family Illness: denies Pertinent Medical Hx (Current Medical&Sleep Prob, Allergies): Allergies Allergy/AdvReac Type Severity Reaction Status Date / Time haloperidol [From Haldol] Allergy ANAPHYLAXIS Verified 08/17/16 18:35 haloperidol lactate Allergy ANAPHYLAXIS Verified 08/17/16 18:35 [From Haldol] DiphenhydrAMINE [Benadryl] 25 mg PO PRN PRN 08/16/16 QUEtiapine [SEROquel] 100 mg PO DAILY 08/16/16 Quetiapine Fumarate [Seroquel] 400 mg PO DAILY 08/16/16 pt has asthma Review of Systems - Psychiatric Psychiatric: As Per [facility] Mental Status Examination - Personal Presentation Personal Presentation: Looks stated age Additional comments: unkempt - Affect Affect: Blunted - Motor Activity Motor Activity: Calm - Reliability in Providing Information Reliability in Providing Information: Poor, due to alteration in thoughts, Poor , due to cognitve impairment - Speech Speech: Disorganized, Other (focused on going to [place]) - Mood Mood: Depressed, Anxious - Formal Thought Process Formal Thought Process: Delusions, Paranoia, Loosening of associations, Perservation - Hallucinations/Delusions Delusions: Persecution - Obsessions/Compulsions Obsessions: No Compulsions: No - Cognitive Functions Orientation: Person, Place, Situation, Time Sensorium: Alert Attention/Concentration: Easily distracted Abstract Thinking: [place] Estimate of Intelligence: Below average Judgement: Intact, as evidence by: Insight regarding need for hospitalization Memory: Recent intact, as evidence by: Ability to recall events of the day, Remote intact, as evidenced by: Abilit to recall sig. life events - Risk Risk: Suicidal (reports thoughts, no plan), Homicidal (denies any homicidal thoughts), Diminished functioning - Strength & Assets Inventory Strength & Assets Inventory: Family support DSM 5 DX - DSM 5 DSM 5 Diagnosis: schizoaffective disorder intellectual disability - Recommended/Plan of Treatment Treatment Recommendations and Plan of Treatment: admit to [facility] for safety and observation gather collateral information provide supportive therapy adjust medications hospitalist consult dispsosition planning Projected ELOS: 3-5 days - Smoking Cessation Smoking Cessation Initiated: No Reason for not providing: declines
--- NOTE | 2016-08-18 14:09 | CP.PCM.CON ---
History of Present Illness - History of Present Illness History of Present Illness: 41 yo male with history of Asthma admitted in psyche unit because of paranoid ideation and hearing voices. Review of Systems - Review of Systems All systems: reviewed and no additional remarkable complaints except (aside from those mentioned above, 12 point system review were negative by me) Past Patient History - Infectious Disease Hx of Infectious Diseases: None - Tetanus Immunizations Tetanus Immunization: Unknown - Past Social History Smoking Status: Former Smoker Alcohol: None - CARDIAC Hx Cardiac Disorders: No Hx Hypertension: No - PULMONARY Hx Respiratory Disorders: Yes Hx Asthma: Yes - NEUROLOGICAL Hx Neurological Disorder: No Hx Seizures: No - HEENT Hx HEENT Problems: No - RENAL Hx Chronic Kidney Disease: No - ENDOCRINE/METABOLIC Hx Endocrine Disorders: No - HEMATOLOGICAL/ONCOLOGICAL Hx Blood Disorders: No Hx Human Immunodeficiency Virus (HIV): No - INTEGUMENTARY Hx Dermatological Problems: No - MUSCULOSKELETAL/RHEUMATOLOGICAL Hx Musculoskeletal Disorders: No - GASTROINTESTINAL Hx Gastrointestinal Disorders: Yes Hx Gastritis: Yes - GENITOURINARY/GYNECOLOGICAL Hx Genitourinary Disorders: No Hx Sexually Transmitted Disorders: No - PSYCHIATRIC Hx Bipolar Disorder: Yes Hx Schizophrenia: Yes Hx Substance Use: No - SURGICAL HISTORY Hx Surgeries: No - ANESTHESIA Hx Anesthesia: No Hx Anesthesia Reactions: No Hx Malignant Hyperthermia: No Meds Allergies/Adverse Reactions: Allergies Allergy/AdvReac Type Severity Reaction Status Date / Time haloperidol [From Haldol] Allergy ANAPHYLAXIS Verified 08/17/16 18:35 haloperidol lactate Allergy ANAPHYLAXIS Verified 08/17/16 18:35 [From Haldol] - Medications Medications: Current Medications Acetaminophen (Tylenol 325mg Tab) 650 mg PO Q4 PRN PRN Reason: Pain, moderate (4-7) Al Hydrox/Mg Hydrox/Simethicone (Maalox Plus 30 Ml) 30 ml PO Q4 PRN PRN Reason: Dyspepsia Albuterol/Ipratropium (Duoneb 3 Mg/0.5 Mg (3 Ml) Ud) 3 ml INH RQ6 PRN PRN Reason: Shortness of Breath Last Admin: 08/18/16 11:34 Dose: 3 ml Diphenhydramine HCl (Benadryl) 50 mg IM Q6 PRN PRN Reason: Extrapyramidal S/S Unable PO Diphenhydramine HCl (Benadryl) 50 mg PO Q6 PRN PRN Reason: Extrapyramidal Symptoms Diphenhydramine HCl (Benadryl) 50 mg PO HS PRN PRN Reason: Sleep Fluphenazine HCl (Prolixin) 5 mg PO HS [facility] Last Admin: 08/17/16 23:14 Dose: 5 mg Fluphenazine HCl (Prolixin) 5 mg PO DAILY [facility] Last Admin: 08/18/16 11:32 Dose: 5 mg Home Med (Patient's Own Medication) 2 unit INH RQ4 PRN PRN Reason: SHORTNESS OF BREATH Last Admin: 08/18/16 06:40 Dose: 2 unit Lorazepam (Ativan) 2 mg IM Q4 PRN PRN Reason: Anxiety/Agitation,Unable PO Lorazepam (Ativan) 2 mg PO Q4 PRN PRN Reason: Anxiety/Agitation Magnesium Hydroxide (Milk Of Magnesia) 30 ml PO HS PRN PRN Reason: Constipation Quetiapine Fumarate (Seroquel) 400 mg PO [facility] Last Admin: 08/17/16 23:14 Dose: 400 mg Quetiapine Fumarate (Seroquel) 100 mg PO DAILY [facility] Physical Exam - Constitutional Appears: No Acute Distress - Head Exam Head Exam: ATRAUMATIC - Eye Exam Eye Exam: absent: Scleral icterus - ENT Exam ENT Exam: Mucous Membranes Moist - Neck Exam Neck exam: Negative for: Meningismus - Respiratory Exam Respiratory Exam: absent: Rhonchi, Wheezes, Respiratory Distress - Cardiovascular Exam Cardiovascular Exam: REGULAR RHYTHM, +S1, +S2 - GI/Abdominal Exam GI & Abdominal Exam: Soft. absent: Tenderness - Rectal Exam Rectal Exam: Deferred - Extremities Exam Extremities exam: Negative for: pedal edema - Neurological Exam Neurological exam: Alert, Oriented x3 - Psychiatric Exam Psychiatric exam: Normal Affect - Skin Skin Exam: Dry, Intact Results - Vital Signs Recent Vital Signs: Last Vital Signs Temp 98.3 F 08/17/16 22:18 Pulse 93 H 08/17/16 23:15 Resp 18 08/17/16 23:15 BP 148/75 08/17/16 22:18 Pulse Ox 97 08/17/16 21:54 - Labs Result Diagrams: 08/17/16 20:00 08/17/16 21:00 Labs: Laboratory Results - last 24 hr 08/18/16 08/18/16 06:00 06:00 Hemoglobin A1c 6.0 Triglycerides 82 D Cholesterol 192 LDL Cholesterol Direct 121 HDL Cholesterol 48 Thyroxine (T4) 6.12 TSH 3rd Generation 3.69 Assessment & Plan (1) Auditory hallucination Status: Acute Comment: psyche is managing (2) Paranoid ideation Status: Acute Comment: psyche is managing (3) Asthma Status: Inactive Comment: asymptomatic
[2016-08-18] MEDS ORDERED: Albuterol-Ipratrop 3 mg / 0.5 (3 ml) UD INH STA (21:21)
[2016-08-19] MEDS: Albuterol-Ipratrop 3 mg / 0.5 (3 ml) UD INH PRN ×2 (08:21→16:42)
--- NOTE | 2016-08-19 11:52 | PCM.PYCHPN ---
Psychiatric Progress Note - Psychiatric Progress Note Patient seen today, length of contact: discussed with team Patient Chief Complaint: nothing works Problems Identified/Issues Discussed: pt is irritable, isolates in room. takes poor care of adls. resists taking meds and expresses feeling hopeless. he is focused on wanting to go to [facility] Medication Change: No Medical Record Reviewed: Yes Mental Status Examination - Cognitive Function Orientation: Person, Place, Situation, Time Memory: Intact Attention: WNL Concentration: WNL Association: WNL Fund of Knowledge: [facility] Decription of patient's judgement and insights: fair - Mood Mood: Depressed, Anxious - Affect Affect: Blunted - Speech Speech: Appropriate - Formal Thought Process Formal Thought Process: Delusions, Paranoia, Loosening of associations, Perservation - Suicidal Ideation Suicidal Ideation: No - Homicidal Ideation Homicidal Ideation: No Plan: denies Goal/Treatment Plan - Goal/Treatment Plan Need for Continued Stay: Remain at risks for inpatient hospitalization, Severe functional impairment Progress Toward Problem(s) and Goals/Treatment Plan: schizoaffective disorder continue current treatment disposition planning Estimated Date of D/C: 08/23/16
[2016-08-19] MEDS: [UNRECOGNIZED DRUG - OTHER] INH PRN (21:06)
--- NOTE | 2016-08-20 12:28 | PCM.PYCHPN ---
Psychiatric Progress Note - Psychiatric Progress Note Patient seen today, length of contact: discussed with team Patient Chief Complaint: go away Problems Identified/Issues Discussed: pt is still irritable, continue to isolate in room. he is unkempt. resists taking meds and expresses feeling hopeless. he is still focused on wanting to go to [facility] Medication Change: No Medical Record Reviewed: Yes Mental Status Examination - Cognitive Function Orientation: Person, Place, Situation, Time Memory: Intact Attention: WNL Concentration: WNL Association: WNL Fund of Knowledge: [facility] Decription of patient's judgement and insights: fair - Mood Mood: Depressed, Anxious - Affect Affect: Blunted - Speech Speech: Appropriate - Formal Thought Process Formal Thought Process: Delusions, Paranoia, Loosening of associations, Perservation - Suicidal Ideation Suicidal Ideation: No - Homicidal Ideation Homicidal Ideation: No Goal/Treatment Plan - Goal/Treatment Plan Need for Continued Stay: Remain at risks for inpatient hospitalization, Severe functional impairment Progress Toward Problem(s) and Goals/Treatment Plan: schizoaffective disorder continue current treatment disposition planning Estimated Date of D/C: 08/23/16
[2016-08-20] MEDS: [UNRECOGNIZED DRUG - OTHER] INH PRN ×2 (18:02→21:48)
--- NOTE | 2016-08-21 10:31 | PCM.PYCHPN ---
Psychiatric Progress Note - Psychiatric Progress Note Patient seen today, length of contact: discussed with team Patient Chief Complaint: nothing works Problems Identified/Issues Discussed: pt still isolates in room. he is pessimistic about things helping him. he still repeats that he wants to go to [facility]. he is not interacting with peers. Medication Change: No Medical Record Reviewed: Yes Mental Status Examination - Cognitive Function Orientation: Person, Place, Situation, Time Memory: Intact Attention: WNL Concentration: WNL Association: WNL Fund of Knowledge: [facility] Decription of patient's judgement and insights: fair - Mood Mood: Depressed, Anxious - Affect Affect: Blunted - Speech Speech: Appropriate - Formal Thought Process Formal Thought Process: Delusions, Paranoia, Loosening of associations, Perservation - Suicidal Ideation Suicidal Ideation: No - Homicidal Ideation Homicidal Ideation: No Goal/Treatment Plan - Goal/Treatment Plan Need for Continued Stay: Remain at risks for inpatient hospitalization, Severe functional impairment Progress Toward Problem(s) and Goals/Treatment Plan: schizoaffective disorder continue current treatment disposition planning Estimated Date of D/C: 08/23/16
[2016-08-21] MEDS: [UNRECOGNIZED DRUG - OTHER] INH PRN ×2 (12:17→16:55)
[2016-08-22] MEDS: [UNRECOGNIZED DRUG - OTHER] INH PRN ×2 (10:08→16:07)
--- NOTE | 2016-08-22 11:57 | PCM.PYCHPN ---
Psychiatric Progress Note - Psychiatric Progress Note Patient seen today, length of contact: discussed with team Patient Chief Complaint: i m frustrated Problems Identified/Issues Discussed: pt still isolates in room. he is pessimistic about things helping him. he still repeats that he wants to go to [place]. he states if he goes home he will start drinking again. he admits he was "much worse- hearing voices and suicidal - when he went to [place] in the past. Medication Change: No Medical Record Reviewed: Yes Mental Status Examination - Cognitive Function Orientation: Person, Place, Situation, Time Memory: Intact Attention: WNL Concentration: WNL Association: [facility] Fund of Knowledge: [facility] Decription of patient's judgement and insights: fair - Mood Mood: Depressed, Anxious - Affect Affect: Blunted - Speech Speech: Appropriate - Formal Thought Process Formal Thought Process: Delusions, Paranoia, Loosening of associations, Perservation - Suicidal Ideation Suicidal Ideation: No - Homicidal Ideation Homicidal Ideation: No Goal/Treatment Plan - Goal/Treatment Plan Need for Continued Stay: Remain at risks for inpatient hospitalization, Severe functional impairment Progress Toward Problem(s) and Goals/Treatment Plan: schizoaffective disorder continue current treatment disposition planning Estimated Date of D/C: 08/23/16
[2016-08-22] MEDS: Albuterol-Ipratrop 3 mg / 0.5 (3 ml) UD INH PRN (12:05)
[2016-08-22 18:55] VITALS: RESP 18
--- NOTE | 2016-08-23 13:46 | PCM.PYCHPN ---
Psychiatric Progress Note - Psychiatric Progress Note Patient seen today, length of contact: discussed with team Patient Chief Complaint: i don't know what i should do Problems Identified/Issues Discussed: pt irritable. isolates in room. pt seems unable to figure out how his living situation now that he is homeless. he admits his psychiatric symptoms are not as bad as they were when he was at [place], but still focused on getting to that facility and wanting to stay for "a year or more" Medication Change: No Medical Record Reviewed: Yes Mental Status Examination - Cognitive Function Orientation: Person, Place, Situation, Time Memory: Intact Attention: WNL Concentration: WNL Association: [facility] Fund of Knowledge: [facility] Decription of patient's judgement and insights: fair - Mood Mood: Depressed, Anxious - Affect Affect: Blunted - Speech Speech: Appropriate - Formal Thought Process Formal Thought Process: Delusions, Paranoia, Loosening of associations, Perservation - Suicidal Ideation Suicidal Ideation: No - Homicidal Ideation Homicidal Ideation: No Goal/Treatment Plan - Goal/Treatment Plan Need for Continued Stay: Remain at risks for inpatient hospitalization, Severe functional impairment Progress Toward Problem(s) and Goals/Treatment Plan: schizoaffective disorder continue current treatment disposition planning Estimated Date of D/C: 08/23/16
[2016-08-23] MEDS: Albuterol-Ipratrop 3 mg / 0.5 (3 ml) UD INH PRN (19:44)
--- NOTE | 2016-08-24 11:42 | PCM.PYCHPN ---
Psychiatric Progress Note - Psychiatric Progress Note Patient seen today, length of contact: discussed with team Patient Chief Complaint: when are you discharging me Problems Identified/Issues Discussed: pt irritable, angry. takes medications with prompting. does not want to directly discuss his thoughts or his recent reports of aggressive thoughts towards family. continues to state that he cannot leave the hospital but is now demanding to leave. he is unkempt and not participating in groups. Medication Change: No Medical Record Reviewed: Yes Mental Status Examination - Cognitive Function Orientation: Person, Place, Situation, Time Memory: Intact Attention: WNL Concentration: WNL Association: WNL Fund of Knowledge: [facility] Decription of patient's judgement and insights: poor i/j - Mood Mood: Depressed, Anxious - Affect Affect: Blunted - Speech Speech: Appropriate - Formal Thought Process Formal Thought Process: Delusions, Paranoia, Loosening of associations, Perservation Psychotic Thoughts and Behaviors: disorganized thoughts/behavior appearance. - Suicidal Ideation Suicidal Ideation: No Plan: vauge suicidal threats - Homicidal Ideation Homicidal Ideation: No Plan: states he doesn't want to talk about his recent threats towards family Goal/Treatment Plan - Goal/Treatment Plan Need for Continued Stay: Remain at risks for inpatient hospitalization, Severe functional impairment Progress Toward Problem(s) and Goals/Treatment Plan: schizoaffective disorder continue current treatment will screen for involuntary hospitalization- pt continues to present as psychotic and unable to care for self in community and presents over and over for hospitalization after discharge. he is on two antipsychotics and still decompensated. in community he is not adherent to treatment. he appears unable to care for self in community secondary to his decompensated mental illness and has made recent threats to harm his family members. Estimated Date of D/C: 08/23/16
[2016-08-24] MEDS: [UNRECOGNIZED DRUG - OTHER] INH PRN (15:58)
[2016-08-24] MEDS: Albuterol-Ipratrop 3 mg / 0.5 (3 ml) UD INH PRN (18:48)
[2016-08-24 20:52] LABS: URINE BILIRUBIN NEGATIVE (NEGATIVE); URINE BLOOD NEGATIVE (NEGATIVE); URINE CLARITY CLEAR (Clear); URINE COLOR YELLOW (YELLOW); URINE GLUCOSE (UA) NEG (Normal); URINE LEUKOCYTE ESTERASE NEG Leu/uL (Negative); URINE NITRATE NEGATIVE (NEGATIVE); URINE PROTEIN NEGATIVE (NEGATIVE); URINE UROBILINOGEN 0.2-1.0 mg/dL (0.2-1.0)
[2016-08-25 09:12] VITALS: BP 104/70; PULSE 82; TEMP 97
[2016-08-25] MEDS: [UNRECOGNIZED DRUG - OTHER] INH PRN (09:14)
--- NOTE | 2016-08-25 09:52 | PCM.PYCHDC ---
Mental Status Examination - Mental Status Examination Orientation: Person, Place, Situation, Time Memory: Intact Mood: Neutral Affect: Constricted Speech: Appropriate Attention: WNL Concentration: WNL Association: WNL Fund of Knowledge: WNL Formal Thought Process: Delusions, Loosening of associations Description of patient's judgement and insight: fair i/j Psychotic Thoughts and Behaviors: disorganized thoughts/behavior appearance. Suicidal Ideation: No Current Homicidal Ideation?: No Plan: pt denies any suicidal or homicidal thoughts Discharge Summary - Discharge Note Reason for Hospitalization: pt reported he wanted to go to [facility] Psychiatric History (includes Medical, Family, Personal Hx): history of schizoaffective disorder Laboratory Data: Abnormal Lab Results 08/24/16 20:46 Urine Color Yellow Urine Clarity Clear Urine pH 6.0 Ur Specific [place] 1.017 Urine Protein Negative Urine Glucose (UA) Neg Urine Ketones Negative Urine Blood Negative Urine Nitrate Negative Urine Bilirubin Negative Urine Urobilinogen 0.2-1.0 Ur Leukocyte Esterase Neg Urine RBC (Auto) < 1 Urine Microscopic WBC < 1 Consultations:: List each consultation separately and include: 1. Reason for request. 2. Findings. 3. Follow-up Consultations: seen by hospitalist Summary of Hospital Course include:: 1. Description of specific treatment plan utilized for patients during their course of treatmen. 2. Summarize the time- course for resolution of acute symptoms and/or regressed behaviors. 3. Describe issues identified and worked on during hospitalization. 4. Describe medication utilized. 5. Describe medical problems identified and treated. 6. Reassessment of suicide risk Summary of Hospital Course: pt has been back and forth from [facility] to [facility] in last months and continues to contact police stating he does not feel safe and wants to go to the hospital. pt has not stayed out of hospital more than 3 days between last two discharges despite having a place to stay. he states he always hears voices and the medications don't work. he is expressing paranoid thoughts and becomes very defensive and guarded when asked bout any ssi he gets. he has made threats in past to harm family and he states now "i just cant live there...i don't want to talk about it. " he continues to perseverate on discharge and is not responsive to teaching about process of going to [facility]. hosptial course pt [facility] and oriented to the unit. pt placed on routine safety protocols pt started back on his home medications. he was taking two antipyschotics on admission as he was not able to be stablized on one medication in the past. he continued to demand to be transfered to [facility] and signed a 48 hour notice. he was referred for a screening at [facility] and he was not found to meet criteria for involuntary hospitalization. at the time of discharge he was agreeing to f/u with his icms worker but did want to leave without follow up appointments. he was denying any suicidal or homicidal thoughts at the time of discharge. - Final Diagnosis (DSM 5) Condition upon Discharge: STABLE DSM 5: schizoaffective disorder alcohol abuse Disposition: HOME/ ROUTINE Follow-up Treatment Plan: follow up with icms take medications as prescribed do not use alcohol, tobacco or other illicit substances call 911 if any suicidal or homicidal thoughts attend aa meeting daily Prescriptions/Medication Reconciliation: DiphenhydrAMINE [Benadryl] 25 mg PO PRN PRN #20 PRN Reason: Allergy Symptoms fluPHENAZine [Prolixin] 5 mg PO DAILY #15 tab fluPHENAZine [Prolixin] 5 mg PO HS #15 tab QUEtiapine [Seroquel] 100 mg PO DAILY #15 Quetiapine Fumarate [Seroquel] 400 mg PO DAILY #15 - Smoking Cessation Smoking Cessation Medication prescribed: No Reason for not providing: declines - Antipsychotic Medications Pt discharged on 2 or more routine antipsychotic medications: Yes - Justification for 2 or more meds Failed 3 or more trials of Monotherapy: List medications: yes. seroquel. prolixin. haldol. risperdal. zyprexa Plan to taper monotherapy: List medications: no, symptoms not treated with one agent
== END 2016-08-25 12:15 | disposition home or self-care (01) | DRG 430 ==
LOC: H.ER 18:29 → H.ERHOLD 21:38 → H.PSYCH 22:48
PROVIDERS: ADMIT Psychiatry & Neurology Psychiatry; ATTEND Psychiatry & Neurology Psychiatry
PROC: GZHZZZZ Group Psychotherapy (ICD-10-PCS; principal; 2016-08-17)
PROC: GZ56ZZZ Individual Psychotherapy, Supportive (ICD-10-PCS; 2016-08-17)
DX: F25.9 Schizoaffective disorder, unspecified (principal); R45.851 Suicidal ideations; R45.850 Homicidal ideations; F79 Unspecified intellectual disabilities; F10.10 Alcohol abuse, uncomplicated; Y90.3 Blood alcohol level of 60-79 mg/100 ml; J45.909 Unspecified asthma, uncomplicated; K29.70 Gastritis, unspecified, without bleeding

== ENCOUNTER 2016-11-23 19:57 | Emergency (ER) | payer MEDICAID ==
[2016-11-23 19:57] VITALS: BMI 22.0
[2016-11-23 20:02] VITALS: RESP 16; TEMP 98.7
--- NOTE | 2016-11-23 21:46 | ED PDOC ---
HPI: Psych/Substance Abuse Time Seen by Provider: 11/23/16 20:11 Chief Complaint (Nursing): Psychiatric Evaluation Chief Complaint (Provider): Psychiatric Evaluation History Per: Patient History/Exam Limitations: no limitations Current Symptoms Are (Timing): Still Present Additional Complaint(s): 41 y/o male with a past medical history of schizophrenia who presents to the emergency department with suicidal and homicidal ideation. Admits he took 6 seroquel and 6 benztropine pills along with alcohol. States he hears voices in his head that are telling him to kill people and himself. Denies any further medical complaints. Past Medical History Reviewed: Historical Data, Nursing Documentation, Vital Signs Vital Signs: Last Vital Signs Temp 98.7 F 11/23/16 20:00 Pulse 66 11/23/16 20:00 Resp 16 11/23/16 20:00 BP 103/82 11/23/16 20:00 Pulse Ox 99 11/23/16 20:00 - Medical History PMH: Anxiety, Asthma, Bipolar Disorder, Depression, Gastritis, Schizophrenia Denies: Diabetes, Hepatitis, HIV, HTN, Chronic Kidney Disease, Seizures, Sexually Transmitted Disease - Surgical History Surgical History: No Surg Hx - Family History Family History: States: Unknown Family Hx - Living Arrangements Living Arrangements: Other (Undomiciled) - Social History Current smoker - smoking cessation education provided: No Ex-Smoker (has not smoked in the last 12 months): Yes Alcohol: Other Drugs: Other - Immunization History Hx Tetanus Toxoid Vaccination: No Hx Influenza Vaccination: No Hx Pneumococcal Vaccination: No - Home Medications Home Medications: Ambulatory Orders Medication Instructions Recorded Benztropine [Cogentin] 1 mg PO BID #60 tab 10/07/16 QUEtiapine [Seroquel] 200 mg PO BID #60 tab 10/07/16 fluPHENAZine [Prolixin] 5 mg PO BID #60 tab 10/07/16 traZODone [Desyrel] 50 mg PO HS PRN #30 tab 10/07/16 - Allergies Allergies/Adverse Reactions: Allergies Allergy/AdvReac Type Severity Reaction Status Date / Time haloperidol [From Haldol] Allergy ANAPHYLAXIS Verified 09/09/16 20:28 haloperidol lactate Allergy ANAPHYLAXIS Verified 09/09/16 20:28 [From Haldol] Review of Systems ROS Statement: Except As Marked, All Systems Reviewed And Found Negative (As per HPI otherwise negative.) Psych: Positive for: Suicidal ideation (Homicidal ideation), Other (Auditory hallucination) Physical Exam - Reviewed Nursing Documentation Reviewed: Yes Vital Signs Reviewed: Yes - Physical Exam Appears: Positive for: Non-toxic Head Exam: Positive for: ATRAUMATIC, NORMAL INSPECTION, NORMOCEPHALIC Skin: Positive for: Warm, Dry Cardiovascular/Chest: Positive for: Regular Rate, Rhythm. Negative for: Murmur Respiratory: Positive for: Normal Breath Sounds. Negative for: Accessory Muscle Use, Respiratory Distress Gastrointestinal/Abdominal: Positive for: Normal Exam, Soft. Negative for: Tenderness Extremity: Positive for: Normal ROM. Negative for: Pedal Edema Neurologic/Psych: Positive for: Alert, Oriented, Other (Disheveled and slow to respond. ) - ECG O2 Sat by Pulse Oximetry: 99 (RA) Pulse Ox Interpretation: Normal Medical Decision Making Medical Decision Making: Time: 2016 Initial Impression: Schizophrenia Initial Plan: --Drug Screen, Urine --Crisis Evaluation As order --AccuCheck --Reevaluation [id number] Garza through crisis. Dx: schizophrenia Patient is stable for discharge home. Scribe Attestation: Documented by Brigid Mathis and Collette Winkler, acting as a scribe for Chino Salguero MD. Provider Scribe Attestation: All medical record entries made by the Scribe were at my direction and personally dictated by me. I have reviewed the chart and agree that the record accurately reflects my personal performance of the history, physical exam, medical decision making, and the department course for this patient. I have also personally directed, reviewed, and agree with the discharge instructions and disposition. Disposition - Clinical Impression Clinical Impression: Schizophrenia - Disposition Referrals: [facility] [Outside] Disposition: Routine/Home Disposition Time: 00:58 Condition: STABLE Instructions: Schizophrenia (ED), Suicide Prevention for Adults (ED) Forms: [employer] ([place]an)
[2016-11-24 01:36] VITALS: BP 125/80; PULSE 75
[2016-11-24 03:08] VITALS: O2SAT 99
== END 2016-11-24 01:45 | disposition home or self-care (01) ==
LOC: H.ER 19:57
DX: F20.9 Schizophrenia, unspecified (principal)